=== PATIENT | male | born 1995 | race Caucasian/White ===

== ENCOUNTER 2019-05-16 23:21 | Inpatient (IN) ==
[2019-05-16] MEDS ORDERED: SODIUM CHLORIDE 0.9% 1000ML 1,000 ML IV ONE (23:29)
[2019-05-16] MEDS ORDERED: CALCIUM CHLORIDE 10% 1,000 MG in SODIUM CHLORIDE 0.9% 50 ML IV STA (23:43)
[2019-05-16] MEDS ORDERED: NovoLIN-R INSULIN PER UNIT CHARGE IV STA (23:43)
[2019-05-16] MEDS ORDERED: ALBUTEROL 0.5% NEB SOLN 2.5 MG/0.5 ML VIAL NEB STA (23:43)
[2019-05-16] MEDS ORDERED: SODIUM BICARB 8.4% INJ 50 MEQ/50 ML SYR IV STA (23:43)
[2019-05-16] MEDS ORDERED: CALCIUM GLUCONATE 10% 10 ML VIAL IV ONE (23:47)
[2019-05-16] MEDS ORDERED: CALCIUM CHLORIDE 10% 10 ML SYR IV ONE (23:51)
[2019-05-17] MEDS ORDERED: ED DKA INSULIN DRIP ONE (00:07)
[2019-05-17 00:28] LABS: Hematocrit (blood only) 41.9 % (42-52); Hemoglobin 12.8 g/dL (14.0-18.0); Mean Corpuscular Hemoglobin 32.4 pg (25-34); Mean Corpuscular Hgb Conc 30.5 g/dL (32-36); Mean Corpuscular Volume 106.1 fL (80-100); Mean Platelet Volume 10.5 fL (7.4-10.4); Platelet Count 315 K/uL (130-400); RDW Coefficient of Variation 12.2 % (11.5-14.5); RDW Standard Deviation 47.2 fL (36.4-46.3); Red Blood Count 3.95 M/uL (4.7-6.1); White Blood Count 34.58 K/uL (4.8-10.8)
[2019-05-17 00:29] LABS: ANC (manual) 30.05 K/uL (1.4-6.5); Lymphocytes % (manual) 5.2 %; Metamyelocytes # (manual) 0.31 K/uL (0-0); Metamyelocytes % (manual) 0.9 %; Monocytes # (manual) 2.42 K/uL (0.11-0.59); Neutrophils # (manual) 30.05 K/uL (1.4-6.5); Neutrophils % (manual) 86.9 %; Pappenheimer Bodies 1+; Polychromasia 1+; Toxic Granulation 2+
[2019-05-17 00:29] LABS: Base Excess ABG -27.1 mEq/L (-9-1.8); HCO3 ABG 4 mmol/L (19-24); PCO2 ABG 17 mmHg (35-46); PO2 ABG 135 mm/Hg (80-95)
[2019-05-17 00:31] LABS: Allen Test Pos (Pos); pH ABG 6.95 (7.35-7.45)
[2019-05-17 00:33] LABS: Alanine Aminotransferase 28 U/L (12-78); Albumin Globulin Ratio 1.3 (0.9-2); Albumin Level 3.5 gm/dl (3.4-5.0); Alkaline Phosphatase 113 U/L (45-117); Aspartate Aminotransferase 17 U/L (15-37); BUN Creatinine Ratio 16.6 (10-20); Bilirubin,Total 0.5 mg/dl (0.2-1); Blood Urea Nitrogen 45 mg/dl (7-18); Calcium 7.6 mg/dl (8.5-10.1); Carbon Dioxide < 5 mmol/L (21-32); Chloride 84 mmol/L (98-107); Est GFR (African American) 36.8; Est GFR (Non-African American) 31.8; Globulin 2.6 gm/dl (2.5-4.0); Glucose 1071 mg/dl (70-99); Lipase 142 U/L (73-393); Magnesium 3.1 mg/dl (1.8-2.4); Potassium 7.7 mmol/L (3.5-5.1); Sodium 117 mmol/L (136-145); Total Protein 6.1 gm/dl (6.4-8.2)
[2019-05-17] MEDS ORDERED: LACTATED RINGER'S 1,000 ML IV SCH (00:45)
[2019-05-17 00:49] LABS: Appearance Urine Clear (Clear); Bilirubin Urine Negative (Negative); Blood Urine 3+ (Negative); Color Urine Colorless; Glucose Urine UA 3+ (Negative); Leukocyte Esterase Urine Negative (Negative); Nitrite Urine Negative (Negative); Protein Urine Negative (Negative); Urobilinogen Urine Negative (Negative)
[2019-05-17 00:51] LABS: Ketones Urine 3+ (Negative)
[2019-05-17] MEDS: INSULIN REGULAR 250 UNITS in SODIUM CHLORIDE 0.9% 247.5 ML IV SCH (01:06)
[2019-05-17 01:21] LABS: Beta-Hydroxybutyrate 120.11 mg/dl (0.2-2.81); Phosphorus 8.3 mg/dl (2.5-4.9)
[2019-05-17 01:22] LABS: Epithelial Cell Urine 0-5 /lpf (0-5)
[2019-05-17 01:23] LABS: Bacteria Urine 1+ (Negative)
[2019-05-17 01:24] LABS: Hyaline Casts Urine 0-5 /lpf (0-5); RBC Urine 0-4 /hpf (0-4)
[2019-05-17] MEDS: SODIUM BICARBONATE 8.4% 150 MEQ in WATER, STERILE 1,000 ML IV SCH ×2 (01:47→05:31)
[2019-05-17 02:13] LABS: iSTAT Blood Urea Nitrogen 42 mg/dl (7-18); iSTAT Carbon Dioxide < 5 mEq/l (24-31); iSTAT Chloride 93 mEq/L (101-112); iSTAT Creatinine 2.2 mg/dl (0.6-1.3); iSTAT Glucose > 700 mg/dl (70-99); iSTAT Hematocrit 41 % (42-52); iSTAT Hemoglobin 13.9 g/dl (14.0-18.0); iSTAT Ionized Calcium 1.01 mmol/l (1.12-1.32); iSTAT Potassium 7.8 mEq/L (3.3-5.0); iSTAT Sodium 115 mEq/L (135-144)
[2019-05-17 02:20] LABS: iSTAT Blood Urea Nitrogen 41 mg/dl (7-18); iSTAT Carbon Dioxide 7 mEq/l (24-31); iSTAT Chloride 99 mEq/L (101-112); iSTAT Creatinine 2.1 mg/dl (0.6-1.3); iSTAT Glucose > 700 mg/dl (70-99); iSTAT Hematocrit 42 % (42-52); iSTAT Hemoglobin 14.3 g/dl (14.0-18.0); iSTAT Ionized Calcium 1.22 mmol/l (1.12-1.32); iSTAT Potassium 6.1 mEq/L (3.3-5.0); iSTAT Sodium 123 mEq/L (135-144)
[2019-05-17] MEDS ORDERED: DC ALL PREVIOUSLY ORDERED DIABETES MEDS ONE (02:33)
[2019-05-17] MEDS ORDERED: INSULIN REGULAR 250 UNITS in SODIUM CHLORIDE 0.9% 247.5 ML IV SCH (02:33)
[2019-05-17] MEDS ORDERED: DKA GOAL RANGE 150-250 mg/dl ONE (02:33)
[2019-05-17] MEDS ORDERED: ICU PROTOCOL FOR HYPERGLYCEMIA PRN (02:33)
--- NOTE | 2019-05-17 02:44 | History and Physical Report ---
DATE OF ADMISSION: 05/17/2019 CHIEF COMPLAINT: Diabetic ketoacidosis. HISTORY OF PRESENT ILLNESS: This is a 23-year-old male with past medical history significant for type 1 diabetes since last 12 years, on insulin pump since last 8 years. About a week ago, his insulin pump sensor was changed. He is from [facility] [employer] for [employer]. Yesterday, he was having lot of nausea and vomiting. He thought it was food poisoning and the he got dehydrated, was not feeling well, feeling sick and he checked his blood sugars and were running high on monitor, so he came here and found to be in DKA. His blood sugars on the blood work is 1071. Potassium of 7.7, bicarbonate was less than 5, creatinine was 2.7. White count was 35,000. A pH was 6.95 and on the monitor, he was having peaked T waves. He was aggressively treated for his hyperkalemia with sodium bicarbonate, calcium chloride, albuterol and insulin. The patient denies any abdominal pain. Denies any fever, chills, no cough, no headaches. He has some blurred visions, no earache, no runny nose, no sore throat, no chest pain, no shortness of breath. He is having frequent urination. Denies any burning micturition, no hematuria, no black stools, no melena or hematochezia. No rash. He never had DKA in the past. ALLERGIES: No known drug allergies. PAST MEDICAL HISTORY: As mentioned above. PAST SURGICAL HISTORY: None. MEDICATIONS: Insulin pump. FAMILY HISTORY: Grandparents had diabetes. Maternal grandfather has heart disorder. SOCIAL HISTORY: Denies any smoking. Alcohol rarely. No illicit drug use. REVIEW OF SYMPTOMS: As per HPI. Rest of review of systems negative. PHYSICAL EXAMINATION: GENERAL: The patient is alert and awake, not in acute distress currently. VITAL SIGNS: Temperature 36.6, pulse 120s, respiratory rate 20s, blood pressure 125/81, oxygen 99% room air. HEENT: No pallor, no icterus. Oral mucosa dry. NECK: No JVD, no neck masses, no carotid bruits. CARDIOVASCULAR: S1, S2 heard. Tachycardia. No murmurs. RESPIRATORY SYSTEM: Normal AP diameter, mild tachypnea. No wheezing, no crackles. ABDOMEN: Soft, bowel sounds present, nontender. No distention. CENTRAL NERVOUS SYSTEM: Alert, awake, oriented. Obeys simple commands. Moves extremities. EXTREMITIES: No edema, no erythema. LABORATORY DATA: WBC 34, hemoglobin 12.8, hematocrit 41.9, platelets 315. ABG: pH of 6.9, pCO2 of 17, pO2 135, bicarb 4, oxygen 98%. Sodium 117, potassium 7.7, chloride 84, bicarbonate less than 5, anion gap 31, BUN 45, creatinine 2.7, serum glucose 1071, calcium 7.6, phosphorus 8.3, magnesium 3.1, total bilirubin 0.5, AST 17, ALT 28, alkaline phosphatase 113. Troponin I 0.05. Lipase 142. Beta hydroxybutyric acid 120. TSH 1.3. Urinalysis positive for ketones and blood. EKG, undetermined rhythm with rate of 109. ASSESSMENT AND PLAN: This is a 23-year-old male who presents with diabetic ketoacidosis. 1. Diabetic ketoacidosis. The patient is type 1 diabetic since last 12 years, on insulin pump for last 8 years. The patient says he was never admitted for DKA in the past. He says he got new insulin pump monitor about a week and possibly mal functioning. Had nausea, vomiting yesterday .. Denies abdominal pain.Sugars were running high, so he came here and sugar was in 1000s, started on insulin drip. We will continue his IV insulin drip protocol per DKA protocol, aggressive IV fluids and maintenance fluids as per DKA protocol. To keep on insulin drip until anion gap closes. Keep him n.p.o. and monitor closely in the ICU. 2. Hyperkalemia secondary to above: Received calcium chloride, sodium bicarbonate, insulin and albuterol in the ER . We will follow the labs every 4 hours. 3. Anion gap metabolic acidosis secondary to above: Bicarbonate is low at 4. In the ER, bicarbonate drip was started. Further bicarbonate drip as per critical care. 4. Acute kidney injury: Creatinine of 2.7. secondary to above. We will follow repeat labs. 5. Pseudohyponatremia: Sodium of 117, corrected sodium is 136. Getting fluids. Follow the repeat labs. 6. Elevation of troponin, mostly secondary to diabetic ketoacidosis. We will follow serial cardiac enzymes. The patient is asymptomatic. 7. Leukocytosis. WBC 35. No signs of infection. Mostly leukemoid reaction. Will follow repeat labs. if any concerns will start on antibiotics. 8. Deep venous thrombosis prophylaxis, SCDs. DISPOSITION: Closely monitor in the ICU. Level 1 full code. MTDD
[2019-05-17] MEDS ORDERED: PHARMACY GLYCEMIC MGMT CONSULT PRN (03:19)
[2019-05-17 03:24] LABS: BUN Creatinine Ratio 16.7 (10-20); Beta-Hydroxybutyrate 116.18 mg/dl (0.2-2.81); Calcium 8.1 mg/dl (8.5-10.1); Creatinine Clr Calc Pharmacy 47.6 ml/min; Est GFR (African American) 40.6; Est GFR (Non-African American) 35.1
[2019-05-17 03:28] LABS: Phosphorus 5.4 mg/dl (2.5-4.9); Potassium 5.9 mmol/L (3.5-5.1)
[2019-05-17] MEDS ORDERED: GLUCOSE 40% GEL 15 GM TUBE PO PRN (03:30)
[2019-05-17] MEDS ORDERED: DEXTROSE 50% 50 ML SYRINGE IV PRN (03:30)
[2019-05-17] MEDS ORDERED: CARBOHYDRATES FOR HYPOGLYCEMIA PO PRN (03:30)
[2019-05-17] MEDS ORDERED: GLUCAGON FOR INJ 1 MG VIAL SQ PRN (03:30)
[2019-05-17] MEDS ORDERED: GLUCOSE 10 TABS/TUBE PO PRN (03:30)
[2019-05-17] MEDS ORDERED: ONDANSETRON INJ 2 MG/ML 2 ML VIAL IV STA (03:35)
[2019-05-17] MEDS ORDERED: ONDANSETRON INJ 2 MG/ML 2 ML VIAL ONE (03:37)
[2019-05-17] MEDS ORDERED: METOCLOPRAMIDE HCL INJ 5 MG/ML 2 ML VIAL IV ONE ×2 (03:42→05:12)
[2019-05-17] MEDS: SODIUM CHLORIDE 0.9% 1000ML 1,000 ML IV SCH ×3 (03:52→05:32)
[2019-05-17] MEDS ORDERED: ONDANSETRON INJ 2 MG/ML 2 ML VIAL IV PRN (04:07)
[2019-05-17] MEDS ORDERED: SODIUM CHLORIDE 0.9% 1000ML 500 ML IV ONE (04:14)
--- NOTE | 2019-05-17 04:45 | Critical Care Consultation ---
Date of Consultation May 17, 2019 Assessment & Plan (1) Admitted to intensive care unit: Reason Critically Ill: 23-year-old male with severe DKA and electrolyte derangements requiring aggressive IV fluid resuscitation and close hemodynamic monitoring. NEURO - * CAM ICU: NEGATIVE * Monitor neuro status frequently for changes in mental status in the setting of correction of underlying DKA. * Currently awake, alert, and oriented. No focal neurological deficits appreciated. CARDIAC/VASCULAR - * Elevated troponin: * Presumed demand mediated in the setting of prolonged tachycardia, severity of illness, hypovolemia, and metabolic acidosis. EKG w/o concerning ST changes for ischemia/infarction. * Trend troponin. * Peaked T waves on EKG: * Initially w/ tachycardia and significantly peaked T-waves with apparent prolonging of the QRS complex on presentation. Peaked T-waves completely resolved w/ aggressive medical treatment. * Serial EKGs. * Treat K as below. * EKG: * Presenting: Sinus tachycardia @ 109 bpm w/ profound peaked T-waves and widening of QRS complex. QTc 519 ms. * Post Treatment: Sinus tachycardia @ 1247 bpm w/ improvement of both dynamic T-waves and shortening of QRS complex. QTc 418 ms. * Monitor on telemetry. RESPIRATORY - * Tachypnea: * Compensatory Kussmaul respirations in the setting of DKA w/ profound metabolic acidosis. * Has shown improvement w/ aggressive IVF resuscitation. * Monitor pulse oximetry continuously. * Serial ABGs. * Would attempt to avoid intubation if at all possible 2/2 risks related to severe metabolic acidosis, electrolyte derangement, etc. GI/NUTRITION - * NPO in the setting of DKA w/ high anion gap. * Intractable Nausea and Vomiting: * Likely 2/2 underlying illness. * Initially improved w/ IV Zofran alone. * Will add scheduled Zofran (QTc has greatly improved since presentation.) * Patient w/ persistent Hiccups. * Likely from diaphragmatic irritation from persistent nausea and vomiting. * Will add IV Reglan. * Initial vomit on presentation to ICU was brownish in appearance. Gastric Occult: NEGATIVE * Will add Famotidine for possible underlying gastritis. * Prophylaxis: Famotidine RENAL/LYTES - * High Anion gap metabolic acidosis: * 2/2 Profound DKA. * Received aggressive IVF boluses in the ED. * Continue w/ Isotonic IVF resuscitation. * Initial ABG w/ pH of 6.9. Agree w/ continuing BiCarb gtt at this point until we are closer to 7.2 range. * Will add dextrose containing IVF when we are within goal range per unit protocol. * Hyperkalemia: * With significant EKG findings initially. * Recovered well w/ treatment. * Should see continued improvement w/ DKA treatment (i.e. BiCarb gtt, insulin gtt, isotonic IVF). * Hyponatremia: * In the setting of DKA w/ Serum Glucose of 1071. * Corrected Sodium: 133-140 mEq/L * JIMENEZ: * In the setting of profound dehydration from N/V. * Presumed to be prerenal in etiology. * Currently making urine. * Anticipate improvement w/ treatment of DKA. - * Strict I&Os. ENDO - * Profound DKA in the IDDM: * Secondary to pump malfunction. * DKA Tx per unit protocol. * Continue w/ Insulin gtt. * Isotonic saline --> Dextrose containing IVF per policy. * Currently requiring BiCarb gtt w/ a pH of 6.9. Will plan to continue until he is closer to 7.2. * Anticipate improvement of pH/serum BiCarb w/ treatment alone as he is making great urine and showing improvement of both anion gap and other electrolyte derangments. HEME - * Leukocytosis: * Likely in the setting of stress reaction/demargination. * Stable H&H. Will monitor closely w/ aggressive IVF resuscitation. ID - * Elevated leukocytosis likely stress reaction in the setting of significant N/V. * Without fever or prodrome of other infectious etiology. * Will check serum lactate. LINES/IV ACCESS - * PIVs x1 * LEFT Forearm 22g Endurance catheter. * RIGHT Radial A-Line. * Patient verbally consents to CVL if needed. DVT PROPHYLAXIS - * SCDs I have personally spent 85 minutes of critical care time in the direct management of this patient. This is a life/limb threatening event. This includes time spent evaluating patient, direct bedside care, chart review, placing orders, interpretation of diagnostic studies, discussion with consultants, patient, and family members, as well as other required patient management activities. This time is exclusive of all separately billable procedures, and teaching time and separate from and in addition to any other critical care service time. Thank you for allowing us to participate in the care of this patient. Please refer to my attending physician's documentation for any further recommendations. (2) DKA (diabetic ketoacidoses): (3) Hyperkalemia: (4) Dehydration: (5) Acute renal failure: (6) Vomiting: (7) High anion gap metabolic acidosis: Supervising Physician Co-Signing Physician Notes Patient seen and examined. Discussed with critical care PA. Discussed with mother and patient at bedside. Briefly the patient is a 23-year-old type I diabetic currently on an insulin pump. He just got a new insulin sensor which apparently was malfunctioning. He did not have his typical glucometer. He is visiting from [place]. According to his mom he is not had prior admissions for DKA but did have one admission for hypoglycemia. He appears to have been fairly well controlled. He was experiencing several days of nausea and vomiting widened QRS and to be in severe DKA with a pH of less than 7.0 and elevated potassium. He received bicarb and calcium as well as fluids and insulin and is admitted to the ICU. He has improved overnight but continues to demonstrate electrolyte abnormalities and acid-base to range. Recommendations: 1. Severe DKA: Discontinue bicarb drip. Continue insulin. Add glucose when sugars drop and will try and keep insulin drip at or above 2 units an hour. Keep on noncaloric clears for now 2. Acute kidney injury: Suspect prerenal state. I think the patient likely still has some persistent hypovolemia. He remains mildly tachycardic. And additional 2 L of crystalloid will be administered and followed up. 3. Leukocytosis: Suspect this is reactive. We will continue to follow. No obvious signs of infection and no indication for antimicrobials currently. 4. Multiple lecture light abnormalities including hyponatremia, hyperkalemia, hypocalcemia: Aggressive replacement will be warranted I suspect the patient will require potassium phosphate and calcium replacement as his acid-base status improves. Magnesium may also need to be repleted. 5. Nausea and vomiting: Secondary to acid-base disturbances. No history of gastroparesis. Continue Zofran and low-dose Ativan as needed 6. We will continue to observe the patient in the ICU today. Plan was discussed with ICU bedside nurse as well as patient and parents at bedside. Additional 25 minutes critical care time evaluating managing patient History of Present Illness Attending Physician: Jeanette Pool MD History of Present Illness Patient is a 23-year-old male with a significant past medical history of insulin-dependent diabetes since the age of 12 who has been using an insulin pump for the past 8 years. He reports that he noticed that he had change pumps approximately 1 week ago. In doing so, he has a new sensor. He reports that yesterday his sensor seem to be not working appropriately. Last evening, the patient reported feeling nauseous and fatigued. He began vomiting throughout the entire day. He has had copious amounts of vomiting. He has not been able to tolerate food or fluids. No blood noted in his vomit or stool. No diarrhea. He reports some diffuse abdominal pain which only developed after vomiting. He admits to labored breathing as well as increasing urination and thirst. He has never experienced DKA in the past. He has never been hospitalized for his diabetes. Upon presentation to the emergency department, the patient had been receiving his second liter normal saline prehospital. He was noted to have tachycardia with wide QRS complex and significantly peaked T waves. He was initially treated with 1 amp of sodium bicarbonate, calcium chloride, and albuterol nebulizer. He received a total of 4 L crystalloid between prehospital and in the emergency department. He was started on a bicarbonate drip secondary to severe metabolic acidosis with a pH of 6.9. Upon evaluation in the emergency department, the patient is awake, alert, and oriented. He reports feeling better than initial presentation, but complains of hiccups. He denies nausea at this time. He reports mild epigastric discomfort which he states has been persistent since the vomiting. He denies any recent long distance travel. No recent antibiotic use. No consumption of raw/undercooked foods. No drinking from poor water sources. He does report drinking alcohol last evening, but no more than usual. He denies any illicit drug use. Patient reports feeling dizzy and generally weak. He denies any headaches, double vision, slurred speech, facial droop, unilateral weakness/numbness, fevers, chills, recent illness, chest pain, palpitations, pleuritic pain, hematochezia, melena, hematuria, or dysuria. Allergies Allergy/AdvReac Type Severity Reaction Status Date / Time No Known Allergies Allergy Unverified 05/17/19 00:31 Home Medications Home Medications Medication Instructions Recorded Confirmed Type insulin lispro [Humalog U-100 1 sliding scale dose CONTINUOUS 05/17/19 05/17/19 History Insulin] SUBCUTANEOUS INFUSION USEASDIRECTD Patient History Medical History Diabetes Family History Other Diabetes Social History Preferred Language: Tamaz[place] Communication Ability: Effective Household Personal Assistant Required: No Beliefs That Will Affect Care: None Current Living Situation: Alone Other Information That Helps Us Care for You: No Feels Safe at Home: Yes Safety Concerns: Feels Safe At This Time Smoking Status: Never smoker Do You Dip or Chew Tobacco: No ; Second Hand Exposure: No ; Tobacco Cessation Education Requested by Patient: No Hx Alcohol Use: Yes Hx Substance Use: No Review of Systems Review of Systems: A complete 10 point review of systems was reviewed with the patient with pertinent positives and negatives as per history of present illness. All else were negative. Physical Exam Physical Exam: VITAL SIGNS - Vital signs and nursing notes were reviewed. GENERAL - 23-year-old male appearing his stated age who is in mild distress. Communicates well with provider and answers questions appropriately. Ill appearing. SKIN - Without rashes. HEAD - NC/AT. EYES - PERRL with EOMI bilaterally. Sclera anicteric. Palpebral conjunctiva pink and moist with no injection noted. EARS - No deformities of external structures noted on gross examination bilaterally. NOSE - Midline and without cyanosis. No epistaxis or purulent drainage noted. MOUTH/OROPHARYNX - Without perioral cyanosis. Buccal mucosa pink and dry. NECK - Neck with FROM. Supple to palpation. No lymphadenopathy noted. No nuchal rigidity. LUNGS - Chest wall symmetric without accessory muscle use, intercostals retractions, or central cyanosis. Normal vesicular breath sounds CTA B/L. No wheezes, rales, or rhonchi appreciated. CARDIAC - RRR with S1/S2. No murmur, rubs, or gallops appreciated. ABDOMEN - Abdominal contour flat without pulsations or visible masses. BS normoactive all four quadrants. No tenderness, palpable masses, hepatosplenomegaly, or ascites noted. EXTREMITIES - No clubbing or peripheral cyanosis. No pretibial edema present. +3/5 radial and dorsalis pedis pulses palpated throughout. +5/5 strength noted in UE/LE bilaterally. NEUROLOGIC - Cranial nerves II through XII grossly intact. Sensory intact to light touch throughout. PSYCH - A&Ox3 and cooperates fully with examiner. Pt is very pleasant and interacts well with examiner. Results & Data Vital Signs (Past 12 Hours) Vital Signs Temp Pulse Pulse Resp BP BP Pulse Ox 05/17/19 02:45 36.9 C 125 H 24 115/45 L 99 05/17/19 02:30 129 H 32 H 108/53 L 97 05/17/19 02:15 126 H 31 H 115/54 L 98 05/17/19 02:00 124 H 23 115/71 98 05/17/19 01:58 121 H 22 122/64 98 05/17/19 01:53 36.6 C 05/17/19 01:00 127 H 27 H 125/81 99 05/17/19 00:45 129 H 30 H 121/71 100 05/17/19 00:30 127 H 22 136/55 L 100 05/17/19 00:15 105 H 21 130/53 L 99 05/17/19 00:00 114 H 20 112/72 100 05/16/19 23:45 108 H 24 109/65 100 05/16/19 23:43 109 H 24 108/54 L 100 05/16/19 23:34 105 H 23 104/57 L 98 05/16/19 23:30 34.8 C L 107 H 22 108/54 L 99 05/16/19 23:28 110 H 22 100 Coding Level of Care Code None Diagnoses Admitted to intensive care unit Z78.9 DKA (diabetic ketoacidoses) E10.10 Diabetes mellitus complication detail: without coma Diabetes mellitus type: type 1 Hyperkalemia E87.5 Dehydration E86.0 Acute renal failure N17.9 Acute renal failure type: unspecified Vomiting R11.2 Nausea presence: with nausea Vomiting Intractability: intractable Vomiting type: unspecified High anion gap metabolic acidosis E87.2 Time Spent (min) 105 Comment minutes of critical care time in the direct management of this patient. This is a life/limb threatening event. This includes time spent evaluating patient, direct bedside care, chart review, placing orders, interpretation of diagnostic studies, discussion with consultants, patient, and family members, as well as other required patient management activities. This time is exclusive of all separately billable procedures, and teaching time and separate from and in addition to any other critical care service time. (1) DKA (diabetic ketoacidoses) Diabetes mellitus complication detail: without coma Diabetes mellitus type: type 1 Qualified Code(s): E10.10 - Type 1 diabetes mellitus with ketoacidosis without coma (2) Acute renal failure Acute renal failure type: unspecified Qualified Code(s): N17.9 - Acute kidney failure, unspecified (3) Vomiting Nausea presence: with nausea Vomiting Intractability: intractable Vomiting type: unspecified Qualified Code(s): R11.2 - Nausea with vomiting, unspecified
--- NOTE | 2019-05-17 04:46 | Procedure Note ---
Procedure Note Date of Service May 17, 2019 Procedure: Penitentiary Indwelling Peripherally Inserted IV Catheter Placement Attending: Dr. Del Valle APC: Scar Marion PA-C Indication: Need for IV Access, Poor Vascular Access Anesthesia: None Verbal consent was obtained from patient prior to performing the procedure. A time-out was completed verifying correct patient, procedure, site, positioning, and implant(s) or special equipment if applicable. Utilizing bedside ultrasound, vascularity of the LEFT upper extremity was assessed. Vessel size was noted for appropriate catheter selection and skin was marked with gentle pressure. Patients LEFT upper extremity was prepped and draped in the usual sterile fashion utilizing chlorhexidine. Ultrasound guidance was used to aid needle placement. A 22 g Endurance Catheter was introduced into the LEFT Forearm vein under direct ultrasound guidance. Guide wire was easily deployed without resistance. Catheter was threaded over the guide wire without resistance and the entire apparatus was removed intact. Good venous blood return was noted in the catheter. The IV catheter was easily flushed with sterile saline flush. Sterile clave was attached to the end of the catheter and good blood return was again noted. Tourniquet was released. StatLock device and sterile dressing were applied. The patient tolerated the procedure well. Blood Loss: Minimal Complications: None Procedural Ultrasound Guidance: Procedure Date: 05/17/2019 Indication: Poor Vascular Access Attending: Dr. Del Valle APC: Scar Marion PA-C Artery/Veins Identified: YES Access confirmed in Vein with ultrasound: YES Complications: NONE Patient tolerated procedure: WELL Coding
--- NOTE | 2019-05-17 04:48 | Procedure Note ---
Procedure Note Date of Service May 17, 2019 Procedure: Arterial Line Placement Attending: Dr. Del Valle APC: Scar Marion PA-C Indication: Monitoring on Pressors Anesthesia: Lidocaine 1% Emergent consent implied given need for close hemodynamic monitoring as well as frequent ABGs and blood glucose monitoring in the patient with poor vascular access. Indication, risks, and benefits were explained at length. Patient verbally consents. A time-out was completed verifying correct patient, procedure, site, positioning, and implant(s) or special equipment if applicable. Allens test was performed to ensure adequate perfusion. Patients RIGHT wrist was prepped and draped in the usual sterile fashion. Ultrasound guidance was used to aid needle placement. A 20g Arrow arterial line was introduced into the RIGHT Radial artery. Catheter was threaded, and the needle was removed with appropriate blood return. Good waveform was observed. The patient tolerated the procedure well. Confirmation of placement with ultrasound. Blood Loss: Minimal Complications: None Procedural Ultrasound Guidance: Procedure Date: 05/17/2019 Indication: Frequent lab draws, ABGs, BSGs, and hemodynamic monitoring. Attending: Dr. Del Valle APC: Scar Marion PA-C Artery Identified: YES Line confirmed in Artery with ultrasound: YES Complications: NONE Patient tolerated procedure: WELL Coding CPT Codes Tubes, Drains, and Vasc Access - Tubes, Drains, and Vasc Access: Place Catheter In Artery ([id number])
[2019-05-17 04:53] LABS: Hemoglobin 13.4 g/dL (14.0-18.0); Mean Corpuscular Hemoglobin 32.6 pg (25-34); Mean Corpuscular Hgb Conc 34.4 g/dL (32-36); Mean Corpuscular Volume 94.9 fL (80-100); Platelet Count 255 K/uL (130-400); RDW Coefficient of Variation 11.8 % (11.5-14.5); RDW Standard Deviation 40.6 fL (36.4-46.3); Red Blood Count 4.11 M/uL (4.7-6.1); White Blood Count 35.95 K/uL (4.8-10.8)
[2019-05-17 05:02] LABS: BUN Creatinine Ratio 17.6 (10-20); Calcium 7.9 mg/dl (8.5-10.1); Creatinine Clr Calc Pharmacy 50.9 ml/min; Magnesium 2.8 mg/dl (1.8-2.4); Phosphorus 2.8 mg/dl (2.5-4.9); Potassium 5.6 mmol/L (3.5-5.1); Troponin I 0.133 ng/ml (0-0.045)
[2019-05-17 05:03] LABS: Gastric Occult Blood Negative (Negative)
[2019-05-17] MEDS ORDERED: SODIUM CHLORIDE 0.9% 1000ML 250 ML IV ONE (05:22)
[2019-05-17 05:47] LABS: Base Excess ABG -20.9 mEq/L (-9-1.8); HCO3 ABG 5 mmol/L (19-24); Oxygen Saturation ABG 96.1 % (90-95); PCO2 ABG 15 mmHg (35-46); PO2 ABG 89 mm/Hg (80-95)
[2019-05-17 05:50] LABS: pH ABG 7.16 (7.35-7.45)
[2019-05-17 05:55] LABS: Beta-Hydroxybutyrate 124.81 mg/dl (0.2-2.81)
[2019-05-17 05:56] LABS: ALC (manual) 4.49 K/uL (1.2-3.4); ANC (manual) 27.93 K/uL (1.4-6.5); Lymphocytes # (manual) 4.49 K/uL (1.2-3.4); Lymphocytes % (manual) 12.5 %; Metamyelocytes # (manual) 0.65 K/uL (0-0); Metamyelocytes % (manual) 1.8 %; Monocytes # (manual) 2.88 K/uL (0.11-0.59); Neutrophils # (manual) 27.93 K/uL (1.4-6.5); Neutrophils % (manual) 77.7 %; Pappenheimer Bodies 1+; Polychromasia 1+; Toxic Vacuolation 1+
[2019-05-17 06:47] LABS: Beta-Hydroxybutyrate 110.13 mg/dl (0.2-2.81)
[2019-05-17] MEDS: FAMOTIDINE 20 MG in SYRINGE 3 ML IV SCH ×2 (07:00→18:17)
[2019-05-17] MEDS: PENDING D5 1/2NS+20mEq KCL IVF SCH ×4 (07:21→10:46)
[2019-05-17] MEDS: INSULIN ASPART 100 UNITS/ML 3 ML PEN SC SCH ×4 (07:21→20:29)
[2019-05-17] MEDS: PENDING 1/2NSS+20mEq KCL IVF SCH ×5 (07:21→10:47)
--- NOTE | 2019-05-17 07:32 | XRay Report ---
CHEST AND ABDOMEN 2 VIEWS HISTORY: Nausea. Vomiting. COMPARISON: None. FINDINGS: The lungs are clear. The cardiomediastinal silhouette is within normal limits. There is no pneumoperitoneum or pneumatosis. The bowel gas pattern is unremarkable. No evidence for b owel obstruction. No pathologic calcifications. IMPRESSION: No acute cardiopulmonary process. No evidence for bowel obstruction. Electronically signed by: Mitesh Harper M.D. 05/17/2019 7:31 AM
[2019-05-17] MEDS ORDERED: ICU ELECTROLYTE REPLACEMENT PROTOCOL PRN (07:59)
[2019-05-17] MEDS ORDERED: NURSING ICU ELECTROLYTE ORDER ONE (07:59)
[2019-05-17] MEDS ORDERED: LACTATED RINGER'S 2,000 ML IV ONE (07:59)
[2019-05-17] MEDS ORDERED: LORazepam 0.25 MG/0.5 ML VIAL IV PRN (08:01)
[2019-05-17] MEDS ORDERED: SODIUM PHOSPHATE 3 MMOL/1 ML INFUSION IV STA (08:19)
[2019-05-17] MEDS ORDERED: CALCIUM GLUCONATE 10% 1,000 MG in SODIUM CHLORIDE 0.9% 50 ML IV ONE (09:00)
[2019-05-17] MEDS ORDERED: SODIUM PHOSPHATE 15 MMOL in SODIUM CHLORIDE 0.9% 250 ML IV ONE (09:00)
[2019-05-17 10:03] LABS: Amphetamines+Metham, Urine Neg (Neg); Barbiturates, Urine Neg (Neg); Benzodiazepine, Urine Neg (Neg); Cocaine, Urine Neg (Neg); MDMA (Ecstacy), Urine Neg (Neg); Methadone, Urine Neg (Neg); Opiate, Urine Neg (Neg); Phencyclidine, Urine Neg (Neg)
[2019-05-17] MEDS ORDERED: D5W AND 1/2NSS 1,000 ML IV SCH (10:15)
[2019-05-17 11:14] LABS: BUN Creatinine Ratio 16.3 (10-20); Calcium 7.5 mg/dl (8.5-10.1); Creatinine Clr Calc Pharmacy 71.9 ml/min; Est GFR (African American) 66.8; Est GFR (Non-African American) 57.7; Magnesium 1.9 mg/dl (1.8-2.4); Phosphorus 1.9 mg/dl (2.5-4.9); Potassium 4.2 mmol/L (3.5-5.1); Troponin I 0.499 ng/ml (0-0.045)
--- NOTE | 2019-05-17 11:30 | Hospitalist Progress Note ---
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 Clinically better this morning We will continue current management Leukocytosis Secondary to a stress due to DKA Doubt any infection Has been improving Increasing troponin Likely due to stress and demand ischemia Doubt any ACS Troponins have been improving Present on Admission?: Yes (2) High anion gap metabolic acidosis: Presented with high anion gap metabolic acidosis Initial pH 6.951 presentation with bicarb of 4 Has been receiving intravenous fluid including intravenous bicarb Acidosis has been improving (3) Hyperkalemia: Presented with severe electrolyte abnormality Potassium was 7.7 with EKG changes on admission Has been normalized as of this morning Hypophosphatemia Has been getting replacement We will monitor (4) Acute renal failure: Secondary to severe dehydration Has been getting intravenous fluid Kidney function seems to be improving with creatinine of 1.65 on 05/17 DVT prophylaxis Subcu heparin Subjective 05/17 The patient was seen and examined in ICU Is a 23-year-old male with insulin-dependent diabetes was admitted with DKA and severe electrolyte imbalance Remains drowsy as of this morning without any acute distress Denies any significant symptoms Review of Systems Review of Systems: All systems reviewed and are unremarkable except as noted below Constitutional: + fatigue, + weakness and + anorexia Neurologic: + generalized weakness Physical Exam Physical Exam: Lying in bed without any significant discomfort but remains drowsy Constitutional: well developed, well nourished and + ill appearing; no acute distress Eyes: PERRL, conjunctivae normal, anicteric sclerae ENMT: external ear and nose normal, oropharynx normal Neck: trachea midline, no thyromegaly Respiratory: normal respiratory effort; no respiratory distress Auscultation: lungs clear to auscultation bilaterally Cardiovascular: Rate/Rhythm: regular rate and regular rhythm Heart Sounds: no murmur Gastrointestinal (Abdomen): Inspection/Auscultation: abdomen normal to inspection and normal bowel sounds Percussion/Palpation: abdomen soft Musculoskeletal: No acute arthritis in any joints Neurologic: moves all extremities; no focal motor deficits Generally very weak and lethargic Lymphatic: no cervical or axillary lymphadenopathy Results & Data Vital Signs (Past 12 Hours) Vital Signs Temp Pulse Pulse Resp BP BP BP 10/20/19 06:00 120 H 24 101/49 L 119/59 L 05/17/19 05:00 117 H 31 H 109/46 L 05/17/19 04:00 36.6 C 120 H 25 H 97/48 L 05/17/19 03:00 36.7 C 125 H 30 H 104/49 L 05/17/19 02:45 36.9 C 125 H 24 115/45 L 05/17/19 02:30 129 H 32 H 108/53 L 05/17/19 02:15 126 H 31 H 115/54 L 05/17/19 02:00 124 H 23 115/71 05/17/19 01:58 121 H 22 122/64 05/17/19 01:53 36.6 C 05/17/19 01:00 127 H 27 H 125/81 05/17/19 00:45 129 H 30 H 121/71 05/17/19 00:30 127 H 22 136/55 L 05/17/19 00:15 105 H 21 130/53 L 05/17/19 00:00 114 H 20 112/72 05/16/19 23:45 108 H 24 109/65 05/16/19 23:43 109 H 24 108/54 L 05/16/19 23:34 105 H 23 104/57 L 05/16/19 23:30 34.8 C L 107 H 22 108/54 L 05/16/19 23:28 110 H 22 Pulse Ox 05/17/19 06:00 99 05/17/19 05:00 99 05/17/19 04:00 99 05/17/19 03:00 98 05/17/19 02:45 99 05/17/19 02:30 97 05/17/19 02:15 98 05/17/19 02:00 98 05/17/19 01:58 98 05/17/19 01:53 05/17/19 01:00 99 05/17/19 00:45 100 05/17/19 00:30 100 05/17/19 00:15 99 05/17/19 00:00 100 05/16/19 23:45 100 05/16/19 23:43 100 05/16/19 23:34 98 05/16/19 23:30 99 10/19/19 23:28 100 Laboratory Results Short CBC 10/19/19 10/20/19 Range/Units 23:35 04:12 WBC 34.58 H* 35.95 H* (4.8-10.8) K/uL Hgb 12.8 L 13.4 L (14.0-18.0) g/dL Hct 41.9 L 39.0 L (42-52) % Plt Count 315 255 (130-400) K/uL BMP 05/16/19 05/17/19 05/17/19 23:54 02:05 04:12 Sodium 117 L* 124 L D 125 L Potassium 7.7 H* 5.9 H D 5.6 H Chloride 84 L 92 L 96 L Carbon Dioxide < 5 L* 6 L* 5 L* BUN 45 H 41 H 41 H Creatinine 2.70 H 2.49 H 2.33 H Glucose 1071 H* 830 H* 642 H* Calcium 7.6 L 8.1 L 7.9 L 05/17/19 05/17/19 05:30 10:26 Sodium 132 L D Potassium 4.2 D Chloride 108 H Carbon Dioxide 13 L BUN 27 H Creatinine 1.65 H D Glucose 533 H* 223 H Calcium 7.5 L Cardiac Enzymes 05/16/19 05/17/19 05/17/19 Range/Units 23:54 04:12 10:26 Troponin I 0.050 H* 0.133 H* 0.499 H* (0-0.045) ng/ml Liver Function 05/16/19 Range/Units 23:54 Total Bilirubin 0.5 (0.2-1) mg/dl AST 17 (15-37) U/L ALT 28 (12-78) U/L Alkaline Phosphatase 113 (45-117) U/L Albumin 3.5 (3.4-5.0) gm/dl Urine 05/17/19 Range/Units 00:05 Urine Color Colorless Urine Appearance Clear (Clear) Urine pH 5.0 (4.5-7.5) Ur Specific [place] 1.020 (1.000-1.030) Urine Protein Negative (Negative) Urine Glucose (UA) 3+ H (Negative) Medications Administered Current Inpatient Medications Dextrose (Dextrose 50%) 25 - 50 ml IV UD PRN; Protocol PRN Reason: Hypoglycemia Protocol Stop: 06/16/19 03:29 Glucagon (Glucagen) 1 mg SQ UD PRN; Protocol PRN Reason: Hypoglycemia Protocol Stop: 06/16/19 03:29 Glucose (Glucose 40%) 15 - 30 gm PO UD PRN; Protocol PRN Reason: Hypoglycemia Protocol Stop: 06/16/19 03:29 Glucose (Dex4 Glucose) 4 - 8 tabs PO UD PRN; Protocol PRN Reason: Hypoglycemia Protocol Stop: 06/16/19 03:29 Insulin Human Regular 250 (units/ Sodium Chloride) 250 mls @ 6.6 mls/hr IV .Q24H [facility]; Protocol Stop: 06/16/19 00:14 Last Titration: 05/17/19 10:00 Dose: 5.3 units/hr, 5.3 mls/hr Documented by: Famotidine 20 mg/ Syringe 5 mls @ 2.5 mls/min IV Q12H [facility] Stop: 06/16/19 05:59 Last Admin: 05/17/19 07:00 Dose: 2.5 mls/min Documented by: Lorazepam (Ativan) 0.25 mg in 0.5 mls @ 0.5 mls/min IV Q6 PRN PRN Reason: Nausea And Vomiting Stop: 06/16/19 08:00 Sodium Phosphate 15 mmol/ (Sodium Chloride) 255 mls @ 100 mls/hr IV 0900 ONE Stop: 05/17/19 11:32 Last Admin: 05/17/19 09:10 Dose: 100 mls/hr Documented by: Potassium Chloride/Dextrose/Sod Cl (D5w And 1/2nss + 20meq Kcl) 20 meq in 1,000 mls @ 150 mls/hr IV .Q6H40M [facility] Stop: 06/16/19 11:29 Insulin Aspart (Novolog Flexpen) 0 units SC ACHS [facility] Stop: 06/16/19 07:29 Last Admin: 05/17/19 07:21 Dose: Not Given Documented by: Miscellaneous (Icu Protocol For Hyperglycemia) 1 ea N/A PRN PRN; Protocol PRN Reason: Hyperglycemia Protocol Stop: 05/19/19 02:32 Miscellaneous (Pending 1/2nss+20meq Kcl Ivf) 1 ea N/A Q2H [facility] Stop: 06/16/19 02:32 Last Admin: 05/17/19 10:47 Dose: Not Given Documented by: Miscellaneous (Pending D5 1/2ns+20meq Kcl Ivf) 1 ea N/A Q2H [facility] Stop: 06/16/19 02:32 Last Admin: 05/17/19 10:46 Dose: Not Given Documented by: Miscellaneous (Carbohydrates For Hypoglycemia) 15 - 30 gm PO UD PRN PRN Reason: Hypoglycemia Treatment Stop: 06/16/19 03:29 Miscellaneous ([facility] Electrolyte Replacement Protocol) 1 ea N/A UD PRN PRN Reason: for e-lyte repletion Stop: 05/24/19 07:58 Miscellaneous Information (Consult Glycemic Management Pharmacy) 1 ea N/A UD PRN PRN Reason: Consult Stop: 06/16/19 03:18 Ondansetron HCl (Zofran) 4 mg IV Q6H PRN PRN Reason: Nausea Stop: 06/16/19 04:06 Last Admin: 05/17/19 05:21 Dose: 4 mg Documented by: (1) DKA (diabetic ketoacidoses) Diabetes mellitus complication detail: without coma Diabetes mellitus type: type 1 Qualified Code(s): E10.10 - Type 1 diabetes mellitus with ketoacidosis without coma (2) Acute renal failure Acute renal failure type: unspecified Qualified Code(s): N17.9 - Acute kidney failure, unspecified
[2019-05-17] MEDS: D5W AND 1/2NSS + 20MEQ KCL 20 MEQ/1,000 ML BAG IV SCH ×2 (12:02→18:17)
[2019-05-17] MEDS ORDERED: SODIUM PHOSPHATE 3 MMOL/1 ML 5 ML VIAL IV ONE (13:01)
[2019-05-17] MEDS: POTASSIUM CHLORIDE / WTR 10 MEQ/100 ML PLCT IV SCH ×4 (13:29→21:49)
[2019-05-17] MEDS ORDERED: CALCIUM GLUCONATE 10% 2,000 MG in SODIUM CHLORIDE 0.9% 50 ML IV ONE ×2 (13:30→19:30)
[2019-05-17] MEDS ORDERED: MAGNESIUM SULFATE / D5W 1 GM/100 ML BAG IV ONE (13:30)
[2019-05-17] MEDS ORDERED: SODIUM PHOSPHATE 30 MMOL in SODIUM CHLORIDE 0.9% 500 ML IV ONE (13:30)
[2019-05-17 18:53] LABS: BUN Creatinine Ratio 10.5 (10-20); Calcium 7.5 mg/dl (8.5-10.1); Creatinine Clr Calc Pharmacy 77.5 ml/min; Est GFR (African American) 73.2; Est GFR (Non-African American) 63.2; Potassium 3.7 mmol/L (3.5-5.1)
[2019-05-17 18:54] LABS: Phosphorus 3.2 mg/dl (2.5-4.9)
[2019-05-17] MEDS ORDERED: POTASSIUM PHOS 3 MMOL/1 ML INFUSION IV STA (19:05)
[2019-05-17] MEDS ORDERED: POTASSIUM PHOSPHATE 9 MMOL in SODIUM CHLORIDE 0.9% 250 ML IV ONE (19:30)
[2019-05-17] MEDS: HEPARIN SOD 5,000 UNIT/0.5 ML VIAL SQ SCH (20:28)
[2019-05-17 22:47] LABS: BUN Creatinine Ratio 9.1 (10-20); Calcium 8.1 mg/dl (8.5-10.1); Creatinine Clr Calc Pharmacy 84.7 ml/min; Est GFR (African American) 81.5; Est GFR (Non-African American) 70.3; Potassium 4.2 mmol/L (3.5-5.1)
[2019-05-17 22:52] LABS: Phosphorus 2.3 mg/dl (2.5-4.9)
[2019-05-18] MEDS: D5W AND 1/2NSS + 20MEQ KCL 20 MEQ/1,000 ML BAG IV SCH ×3 (00:04→06:00)
[2019-05-18] MEDS ORDERED: LACTATED RINGER'S 500 ML IV ONE (00:32)
[2019-05-18] MEDS: INSULIN REGULAR 250 UNITS in SODIUM CHLORIDE 0.9% 247.5 ML IV SCH (01:19)
--- NOTE | 2019-05-18 03:26 | Emergency Department Note ---
Entered by Flores Ang acting as a scribe for History of Present Illness General Chief complaint: Illness Stated complaint: ILLNESS/VOMITING Time Seen by Provider: 05/16/19 23:24 Source: patient Mode of arrival: EMS Limitations: no limitations History of Present Illness Provider complaint: Hyperglycemia Onset (ago): day(s) 1 Location: abdomen Pain Consistency: + constant Quality: + constant Associated symptoms: + nausea/vomiting and + other (Positive: abdominal pain) The patient is a 23 year old male with past medical history of diabetes who presents to the ED with complaints of constant hyperglycemia that stared yesterday. The patient reports he got a new sensor last week that stopped working yesterday along with the pump. He states he has had history of diabetes since he was 11 years old and has had the same pump for 8 years. The patient additionally reports he has nausea, vomiting, and abdominal pain. He denies any recent change in his diet or activity. No sick contacts. Patient denies ever needing to be hospitalized for his diabetes. Denies any history of DKA. EMS reported their glucometer read high on their check prehospital, patient was started on IV fluids. Patient has had 1 L and is into a second liter on arrival here. Patient was given Zofran prehospital also. Home Medications Home Medications Medication Instructions Recorded Confirmed Type insulin lispro [Humalog U-100 1 sliding scale dose CONTINUOUS 05/17/19 05/17/19 History Insulin] SUBCUTANEOUS INFUSION USEASDIRECTD Allergies Allergy/AdvReac Type Severity Reaction Status Date / Time No Known Allergies Allergy Unverified 05/17/19 00:31 Past Med/Surg History Medical History Diabetes Family History Other Diabetes Social History Preferred Language: Kazakh Communication Ability: Effective Field Map Technician Required: No Beliefs That Will Affect Care: None Current Living Situation: Alone Other Information That Helps Us Care for You: No Feels Safe at Home: Yes Safety Concerns: Feels Safe At This Time Smoking Status: Never smoker Do You Dip or Chew Tobacco: No ; Second Hand Exposure: No ; Tobacco Cessation Education Requested by Patient: No Hx Alcohol Use: Yes Hx Substance Use: No Review of Systems See HPI for pertinent positives & negatives. and A total of 10 systems reviewed and were otherwise negative Physical Exam Vital Signs Vital Signs - 24 hr 05/16/19 23:28 05/16/19 23:30 05/16/19 23:34 Temperature 94.6 F L Temperature Source Rectal Sepsis Recent Fever Within 48 Hours No Sepsis New/Unexplained Change in Mental Status No Sepsis Action Taken by Nursing No Action Required Pulse Rate 110 H 107 H 105 H Pulse Rate from SpO2 Sensor 109 H 110 H 107 H Respiratory Rate 22 22 23 Respiratory Effort / Characteristics Non-Labored Respiratory Depth Normal Blood Pressure 108/54 L 104/57 L Blood Pressure Mean 72 72 Pulse Oximetry 100 99 98 Oxygen Delivery Method Room Air Room Air 05/16/19 23:43 05/16/19 23:45 05/17/19 00:00 Temperature Temperature Source Sepsis Recent Fever Within 48 Hours Sepsis New/Unexplained Change in Mental Status Sepsis Action Taken by Nursing Pulse Rate 109 H 108 H 114 H Pulse Rate from SpO2 Sensor 110 H 108 H 111 H Respiratory Rate 24 24 20 Respiratory Effort / Characteristics Respiratory Depth Blood Pressure 108/54 L 109/65 112/72 Blood Pressure Mean 72 79 85 Pulse Oximetry 100 100 100 Oxygen Delivery Method Room Air Room Air Room Air 05/17/19 00:15 05/17/19 00:30 05/17/19 00:45 Temperature Temperature Source Sepsis Recent Fever Within 48 Hours Sepsis New/Unexplained Change in Mental Status Sepsis Action Taken by Nursing Pulse Rate 105 H 127 H 129 H Pulse Rate from SpO2 Sensor 103 H 126 H 129 H Respiratory Rate 21 22 30 H Respiratory Effort / Characteristics Respiratory Depth Blood Pressure 130/53 L 136/55 L 121/71 Blood Pressure Mean 78 82 87 Pulse Oximetry 99 100 100 Oxygen Delivery Method Room Air Room Air Room Air 05/17/19 01:00 05/17/19 01:53 Temperature 97.9 F Temperature Source Oral Sepsis Recent Fever Within 48 Hours Sepsis New/Unexplained Change in Mental Status Sepsis Action Taken by Nursing Pulse Rate 127 H Pulse Rate from SpO2 Sensor 128 H Respiratory Rate 27 H Respiratory Effort / Characteristics Respiratory Depth Blood Pressure 125/81 Blood Pressure Mean 95 Pulse Oximetry 99 Oxygen Delivery Method Room Air GENERAL: alert, mildly ill appearing, well nourished, no distress, non-toxic EYE EXAM: normal conjunctiva, PERRL and EOM's grossly intact OROPHARYNX: no exudate, no erythema, lips, buccal mucosa, and tongue normal. Dry mucous membranes. NECK: supple, no nuchal rigidity, no adenopathy, non-tender LUNGS: Clear to auscultation. Normal chest wall mechanics. No wheezes, rhonchi, or rales. HEART: no murmurs, S1 normal and S2 normal. Tachycardic at 115. ABDOMEN: abdomen soft, non-tender, normo-active bowel sounds, no masses, no rebound or guarding. BACK: Back is symmetrical on inspection and there is no deformity, no midline tenderness, no CVA tenderness. SKIN: no rashes and no bruising, no petechiae UPPER EXTREMITIES: upper extremities are grossly normal. FROM, nml pulses b/l. LOWER EXTREMITIES: No pitting edema. FROM, nml pulses b/l. NEURO EXAM: Normal sensorium, cranial nerves II-XII grossly intact, normal speech, no gross weakness of arms, no gross weakness of legs. Course 2321: The patient was evaluated in room A1. A complete history and physical exam was performed. 2342: I checked on the patient. 0012: Upon reevaluation, the patient is resting comfortably. I discussed laboratory and radiographic results with him. The patient verbalized agreement of the treatment plan. The patient will be evaluated for further management and care. ICU PA was contacted. Peak T waves are already improving. Patient's tachycardia is improving. No other ectopy noted. Patient remains hemodynamically stable. 0122: I discussed the patient's case with Dr. [place], [facility] [place] He will evaluate the patient for further management. 0154: I checked on the patient. He is getting a second line and both drips are now running. The patient is going to the ICU. Administered Medications Heparin Sodium (Porcine) (Heparin Sodium (Porcine)) 5,000 units SQ Q12 JUSTINO Stop: 06/16/19 20:59 Last Admin: 05/17/19 20:28 Dose: 5,000 units Documented by: [id number] Cosigned by: [id number] Insulin Human Regular 250 (units/ Sodium Chloride) 250 mls @ 2.6 mls/hr IV .Q24H JUSTINO; Protocol Stop: 06/16/19 00:14 Last Titration: 05/18/19 04:00 Dose: 2.6 units/hr, 2.6 mls/hr Documented by: [id number] Cosigned by: [id number] Titration: 05/18/19 02:00 Dose: 2.6 units/hr, 2.6 mls/hr Documented by: [id number] Cosigned by: [id number] Admin: 05/18/19 01:19 Dose: 2.6 units/hr, 2.6 mls/hr Documented by: [id number] Cosigned by: [id number] Titration: 05/18/19 01:19 Dose: 2.6 units/hr, 2.6 mls/hr Documented by: [id number] Cosigned by: [id number] Titration: 05/18/19 00:05 Dose: 2.6 units/hr, 2.6 mls/hr Documented by: [id number] Cosigned by: [id number] Titration: 05/17/19 23:00 Dose: 2.6 units/hr, 2.6 mls/hr Documented by: [id number] Cosigned by: [id number] Titration: 05/17/19 22:00 Dose: 2.6 units/hr, 2.6 mls/hr Documented by: [id number] Cosigned by: [id number] Titration: 05/17/19 21:00 Dose: 2.6 units/hr, 2.6 mls/hr Documented by: [id number] Cosigned by: [id number] Titration: 05/17/19 20:00 Dose: 2.6 units/hr, 2.6 mls/hr Documented by: [id number] Cosigned by: [id number] Titration: 05/17/19 19:00 Dose: 2.6 units/hr, 2.6 mls/hr Documented by: [id number] Cosigned by: [id number] Titration: 05/17/19 18:45 Dose: 2.6 units/hr, 2.6 mls/hr Documented by: [id number] Cosigned by: [id number] Titration: 05/17/19 17:45 Dose: 3.2 units/hr, 3.2 mls/hr Documented by: [id number] Cosigned by: [id number] Titration: 05/17/19 17:00 Dose: 0 units/hr, 0 mls/hr Documented by: [id number] Cosigned by: [id number] Titration: 05/17/19 15:00 Dose: 5.3 units/hr, 5.3 mls/hr Documented by: [id number] Cosigned by: [id number] Titration: 05/17/19 13:00 Dose: 5.3 units/hr, 5.3 mls/hr Documented by: [id number] Cosigned by: [id number] Titration: 05/17/19 12:00 Dose: 5.3 units/hr, 5.3 mls/hr Documented by: [id number] Cosigned by: [id number] Titration: 05/17/19 11:00 Dose: 5.3 units/hr, 5.3 mls/hr Documented by: [id number] Cosigned by: [id number] Titration: 05/17/19 10:00 Dose: 5.3 units/hr, 5.3 mls/hr Documented by: [id number] Cosigned by: [id number] Titration: 05/17/19 09:00 Dose: 6.6 units/hr, 6.6 mls/hr Documented by: [id number] Cosigned by: [id number] Titration: 05/17/19 08:00 Dose: 6.6 units/hr, 6.6 mls/hr Documented by: [id number] Cosigned by: [id number] Titration: 05/17/19 07:08 Dose: 6.6 units/hr, 6.6 mls/hr Documented by: [id number] Cosigned by: [id number] Titration: 05/17/19 06:00 Dose: 6.6 units/hr, 6.6 mls/hr Documented by: [id number] Cosigned by: [id number] Titration: 05/17/19 05:04 Dose: 5.5 units/hr, 5.5 mls/hr Documented by: [id number] Cosigned by: [id number] Titration: 05/17/19 03:00 Dose: 4.6 units/hr, 4.6 mls/hr Documented by: [id number] Cosigned by: [id number] Admin: 05/17/19 01:06 Dose: 3.8 units/hr, 3.8 mls/hr Documented by: [id number] Cosigned by: [id number] Famotidine 20 mg/ Syringe 5 mls @ 2.5 mls/min IV Q12H JUSTINO Stop: 06/16/19 05:59 Last Admin: 05/17/19 18:17 Dose: 2.5 mls/min Documented by: [id number] Admin: 05/17/19 07:00 Dose: 2.5 mls/min Documented by: [id number] Potassium Chloride/Dextrose/Sod Cl (D5w And 1/2nss + 20meq Kcl) 20 meq in 1,000 mls @ 200 mls/hr IV .Q5H JUSTINO Stop: 06/16/19 11:29 Last Admin: 05/18/19 04:12 Dose: 200 mls/hr Documented by: [id number] Infusion: 05/18/19 04:12 Dose: 200 mls/hr Documented by: [id number] Admin: 05/18/19 00:04 Dose: 200 mls/hr Documented by: [id number] Infusion: 05/17/19 23:17 Dose: 200 mls/hr Documented by: [id number] Admin: 05/17/19 18:17 Dose: 200 mls/hr Documented by: [id number] Infusion: 05/17/19 18:17 Dose: 200 mls/hr Documented by: [id number] Infusion: 05/17/19 17:39 Dose: 200 mls/hr Documented by: [id number] Admin: 05/17/19 12:02 Dose: 150 mls/hr Documented by: [id number] Insulin Aspart (Novolog Flexpen) 0 units SC ACHS JUSTINO Stop: 06/16/19 07:29 Last Admin: 05/17/19 20:29 Dose: 300 units Documented by: [id number] Cosigned by: [id number] Admin: 05/17/19 15:53 Dose: Not Given Documented by: [id number] Cosigned by: [id number] Admin: 05/17/19 12:14 Dose: Not Given Documented by: [id number] Cosigned by: [id number] Admin: 05/17/19 07:21 Dose: Not Given Documented by: [id number] Cosigned by: [id number] Ondansetron HCl (Zofran) 4 mg IV Q6H PRN PRN Reason: Nausea Stop: 06/16/19 04:06 Last Admin: 05/17/19 05:21 Dose: 4 mg Documented by: [id number] Discontinued Medications Albuterol (Ventolin 0.5% 2.5mg/0.5ml) 2.5 mg NEB NOW STA Stop: 05/16/19 23:44 Last Admin: 05/16/19 23:50 Dose: 2.5 mg Documented by: [id number] Calcium Chloride (Calcium Chloride 10%) Confirm Administered Dose 1,000 mg IV .STK-MED ONE Stop: 05/16/19 23:52 Last Admin: 05/17/19 00:11 Dose: Not Given Documented by: [id number] Calcium Gluconate (Calcium Gluconate 10%) Confirm Administered Dose 1,000 mg IV .STK-MED ONE Stop: 05/16/19 23:48 Last Admin: 05/16/19 23:53 Dose: Not Given Documented by: [id number] Sodium Chloride (Nss 1000ml) 1,000 mls @ 999 mls/hr IV .Q1H1M ONE Stop: 05/17/19 00:29 Last Infusion: 05/17/19 01:12 Dose: 0 mls/hr Documented by: [id number] Admin: 05/16/19 23:52 Dose: 999 mls/hr Documented by: [id number] Calcium Chloride 1,000 mg/ (Sodium Chloride) 60 mls @ 240 mls/hr IV NOW STA Stop: 05/16/19 23:57 Last Infusion: 05/17/19 00:10 Dose: 0 mls/hr Documented by: [id number] Admin: 05/16/19 23:53 Dose: 240 mls/hr Documented by: [id number] Sodium Bicarbonate 150 meq/ (Sterile Water) 1,150 mls @ 150 mls/hr IV .Q7H40M JUSTINO Stop: 06/16/19 00:44 Last Infusion: 05/17/19 08:20 Dose: 0 mls/hr Documented by: [id number] Admin: 05/17/19 05:31 Dose: 150 mls/hr Documented by: [id number] Infusion: 05/17/19 05:31 Dose: 100 mls/hr Documented by: [id number] Admin: 05/17/19 01:47 Dose: 100 mls/hr Documented by: [id number] Lactated Ringer's (Lr) 1,000 mls @ 125 mls/hr IV .Q8H JUSTINO Stop: 06/16/19 00:44 Last Infusion: 05/17/19 07:22 Dose: 0 mls/hr Documented by: [id number] Admin: 05/17/19 01:47 Dose: 125 mls/hr Documented by: [id number] Sodium Chloride (Nss 1000ml) 1,000 mls @ 150 mls/hr IV .Q6H40M JUSTINO Stop: 06/16/19 02:32 Last Infusion: 05/17/19 10:05 Dose: 0 mls/hr Documented by: [id number] Infusion: 05/17/19 05:32 Dose: 150 mls/hr Documented by: [id number] Admin: 05/17/19 05:32 Dose: 250 mls/hr Documented by: [id number] Infusion: 05/17/19 05:32 Dose: 250 mls/hr Documented by: [id number] Admin: 05/17/19 05:23 Dose: 250 mls/hr Documented by: [id number] Infusion: 05/17/19 05:23 Dose: 250 mls/hr Documented by: [id number] Admin: 05/17/19 03:52 Dose: 250 mls/hr Documented by: [id number] Sodium Chloride (Nss 1000ml) 500 mls @ 999 mls/hr IV .Q31M ONE Stop: 05/17/19 04:44 Last Infusion: 05/17/19 07:22 Dose: 0 mls/hr Documented by: [id number] Admin: 05/17/19 05:21 Dose: 999 mls/hr Documented by: [id number] Sodium Chloride (Nss 1000ml) 250 mls @ 999 mls/hr IV .Q16M ONE Stop: 05/17/19 05:37 Last Infusion: 05/17/19 07:22 Dose: 0 mls/hr Documented by: [id number] Admin: 05/17/19 05:29 Dose: 999 mls/hr Documented by: [id number] Lactated Ringer's (Lr) 2,000 mls @ 999 mls/hr IV .Q2H1M ONE Stop: 05/17/19 09:59 Last Infusion: 05/17/19 10:48 Dose: 0 mls/hr Documented by: [id number] Admin: 05/17/19 08:23 Dose: 999 mls/hr Documented by: [id number] Calcium Gluconate 1,000 mg/ (Sodium Chloride) 60 mls @ 240 mls/hr IV 0900 ONE Stop: 05/17/19 09:14 Last Infusion: 05/17/19 09:33 Dose: 0 mls/hr Documented by: [id number] Admin: 05/17/19 09:10 Dose: 240 mls/hr Documented by: [id number] Sodium Phosphate 15 mmol/ (Sodium Chloride) 255 mls @ 100 mls/hr IV 0900 ONE Stop: 05/17/19 11:32 Last Infusion: 05/17/19 11:43 Dose: 0 mls/hr Documented by: [id number] Admin: 05/17/19 09:10 Dose: 100 mls/hr Documented by: [id number] Dextrose/Sodium Chloride (D5w And 1/2nss) 1,000 mls @ 150 mls/hr IV .Q6H40M [facility] Stop: 06/16/19 10:14 Last Infusion: 05/17/19 12:02 Dose: 0 mls/hr Documented by: [id number] Admin: 05/17/19 10:05 Dose: 150 mls/hr Documented by: [id number] Calcium Gluconate 2,000 mg/ (Sodium Chloride) 70 mls @ 240 mls/hr IV NOW ONE Stop: 05/17/19 13:47 Last Infusion: 05/17/19 13:50 Dose: 0 mls/hr Documented by: [id number] Admin: 05/17/19 13:28 Dose: 240 mls/hr Documented by: [id number] Magnesium Sulfate/Dextrose (Magnesium Sulfate / D5w) 1 gm in 100 mls @ 100 mls/hr IV ONE ONE Stop: 05/17/19 14:29 Last Infusion: 05/17/19 15:06 Dose: 0 mls/hr Documented by: [id number] Admin: 05/17/19 13:50 Dose: 100 mls/hr Documented by: [id number] Potassium Chloride (K Estrada / Wtr) 10 meq in 100 mls @ 100 mls/hr IV Q1H [facility] Stop: 05/17/19 15:44 Last Infusion: 05/17/19 15:48 Dose: 0 mls/hr Documented by: [id number] Admin: 05/17/19 14:30 Dose: 100 mls/hr Documented by: [id number] Infusion: 05/17/19 14:29 Dose: 100 mls/hr Documented by: [id number] Admin: 05/17/19 13:29 Dose: 100 mls/hr Documented by: [id number] Sodium Phosphate 30 mmol/ (Sodium Chloride) 510 mls @ 88 mls/hr IV ONE ONE Stop: 05/17/19 19:17 Last Infusion: 05/17/19 19:16 Dose: 88 mls/hr Documented by: [id number] Admin: 05/17/19 13:28 Dose: 88 mls/hr Documented by: [id number] Calcium Gluconate 2,000 mg/ (Sodium Chloride) 70 mls @ 240 mls/hr IV 1930 ONE Stop: 05/17/19 19:47 Last Infusion: 05/17/19 20:44 Dose: 240 mls/hr Documented by: [id number] Admin: 05/17/19 20:26 Dose: 240 mls/hr Documented by: [id number] Potassium Chloride (K Estrada / Wtr) 10 meq in 100 mls @ 100 mls/hr IV Q1H JUSTINO Stop: 05/17/19 21:29 Last Infusion: 05/17/19 22:49 Dose: 100 mls/hr Documented by: [id number] Admin: 05/17/19 21:49 Dose: 100 mls/hr Documented by: [id number] Infusion: 05/17/19 21:28 Dose: 100 mls/hr Documented by: [id number] Admin: 05/17/19 20:28 Dose: 100 mls/hr Documented by: [id number] Potassium Phosphate 9 mmol/ (Sodium Chloride) 253 mls @ 100 mls/hr IV ONE ONE Stop: 05/17/19 22:01 Last Infusion: 05/17/19 22:59 Dose: 100 mls/hr Documented by: [id number] Admin: 05/17/19 20:27 Dose: 100 mls/hr Documented by: [id number] Lactated Ringer's (Lr) 500 mls @ 999 mls/hr IV .Q31M ONE Stop: 05/18/19 01:02 Last Infusion: 05/18/19 01:14 Dose: 999 mls/hr Documented by: [id number] Admin: 05/18/19 00:43 Dose: 999 mls/hr Documented by: [id number] Insulin Human Regular (Novolin R U-100 Per Unit) 10 units IV NOW STA Stop: 05/16/19 23:44 Last Admin: 05/17/19 00:07 Dose: 10 units Documented by: [id number] Cosigned by: [id number] Metoclopramide HCl (Reglan) 5 mg IV ONE ONE Stop: 05/17/19 03:43 Last Admin: 05/17/19 03:52 Dose: 5 mg Documented by: [id number] Metoclopramide HCl (Reglan) 5 mg IV ONE ONE Stop: 05/17/19 05:13 Last Admin: 05/17/19 05:21 Dose: 5 mg Documented by: [id number] Miscellaneous (Pending 1/2nss+20meq Kcl Ivf) 1 ea N/A Q2H JUSTINO Stop: 06/16/19 02:32 Last Admin: 05/17/19 10:47 Dose: Not Given Documented by: [id number] Admin: 05/17/19 09:10 Dose: Not Given Documented by: [id number] Admin: 05/17/19 07:24 Dose: Not Given Documented by: [id number] Admin: 05/17/19 07:23 Dose: Not Given Documented by: [id number] Admin: 05/17/19 07:21 Dose: Not Given Documented by: [id number] Miscellaneous (Pending D5 1/2ns+20meq Kcl Ivf) 1 ea N/A Q2H JUSTINO Stop: 06/16/19 02:32 Last Admin: 05/17/19 10:46 Dose: Not Given Documented by: [id number] Admin: 05/17/19 09:10 Dose: Not Given Documented by: [id number] Admin: 05/17/19 07:24 Dose: Not Given Documented by: [id number] Admin: 05/17/19 07:24 Dose: Not Given Documented by: [id number] Admin: 05/17/19 07:21 Dose: Not Given Documented by: [id number] Miscellaneous (Nursing Icu Electrolyte Order) 1 ea N/A ONE ONE Stop: 05/17/19 08:00 Last Admin: 05/17/19 09:10 Dose: Not Given Documented by: [id number] Ondansetron HCl (Zofran) 4 mg IV NOW STA Stop: 05/17/19 03:36 Last Admin: 05/17/19 03:52 Dose: 4 mg Documented by: [id number] Ondansetron HCl (Zofran) Confirm Administered Dose 4 mg .ROUTE .STK-MED ONE Stop: 05/17/19 03:38 Last Admin: 05/17/19 05:22 Dose: 4 mg Documented by: [id number] Sodium Bicarbonate (Sodium Bicarbonate 8.4%) 1 meq IV ONCE STA Stop: 05/16/19 23:44 Last Admin: 05/16/19 23:53 Dose: 1 meq Documented by: [id number] Medical Decision Making Differential Diagnosis Differential diagnosis: Etiologies such as gastroenteritis, food borne illness, infections, appendicitis, diverticulitis, inflammatory bowel disease, obstruction, GI bleed, biliary pathology, as well as others were entertained. Medical Records Attestation: I reviewed the patient's medical records. Home Medications Current Medication List: was personally reviewed by me Laboratory Data Attestation: I reviewed the patient's lab results. Result diagrams: 05/17/19 04:12 05/17/19 22:23 Lab Results 05/16/19 05/16/19 05/16/19 Range/Units 23:35 23:41 23:54 WBC 34.58 H* (4.8-10.8) K/uL RBC 3.95 L (4.7-6.1) M/uL Hgb 12.8 L (14.0-18.0) g/dL POC Hgb 13.9 L (14.0-18.0) g/dl Hct 41.9 L (42-52) % POC Hct 41 L (42-52) % MCV 106.1 H (80-100) fL MCH 32.4 (25-34) pg MCHC 30.5 L (32-36) g/dL RDW Std Deviation 47.2 H (36.4-46.3) fL RDW Coeff of All 12.2 (11.5-14.5) % Plt Count 315 (130-400) K/uL MPV 10.5 H (7.4-10.4) fL Neutrophils % (Manual) 86.9 % Lymphocytes % (Manual) 5.2 % Monocytes % (Manual) 7.0 % Metamyelocytes % (Man) 0.9 % Neutrophils # (Manual) 30.05 H (1.4-6.5) K/uL Total Absolute Neuts 30.05 H (1.4-6.5) K/uL Lymphocytes # (Manual) 1.80 (1.2-3.4) K/uL Total Abs Lymphocytes 1.80 (1.2-3.4) K/uL Monocytes # (Manual) 2.42 H (0.11-0.59) K/uL Metamyelocytes # (Man) 0.31 H (0-0) K/uL Toxic Granulation 2+ Polychromasia 1+ Pappenheimer Bodies 1+ ABG pH 6.95 L* (7.35-7.45) ABG pCO2 17 L (35-46) mmHg ABG pO2 135 H (80-95) mm/Hg ABG HCO3 4 L (19-24) mmol/L ABG O2 Saturation 98.0 H (90-95) % ABG Base Excess -27.1 L (-9-1.8) mEq/L Clayton Test Pos (Pos) Barometric Pressure 731.4 mm/Hg Oxygen Given ROOM AIR POC Sodium 115 L* (135-144) mEq/L Sodium (136-145) mmol/L POC Potassium 7.8 H* (3.3-5.0) mEq/L Potassium (3.5-5.1) mmol/L POC Chloride 93 L (101-112) mEq/L Chloride (98-107) mmol/L Carbon Dioxide (21-32) mmol/L POC Total CO2 < 5 L* (24-31) mEq/l Anion Gap (3-11) POC Anion Gap 25.0 (16-25) mmol/L POC BUN 42 H (7-18) mg/dl BUN (7-18) mg/dl Creatinine (0.6-1.4) mg/dl POC Creatinine 2.2 H (0.6-1.3) mg/dl Est Cr Clr Drug Dosing Est GFR ( Amer) Est GFR (Non-Af Amer) BUN/Creatinine Ratio (10-20) Glucose (70-99) mg/dl POC Glucose (70-99) POC Glucose (other) > 700 H* (70-99) mg/dl Calcium (8.5-10.1) mg/dl POC Ioniz Calcium Charlene 1.01 L (1.12-1.32) mmol/l Phosphorus (2.5-4.9) mg/dl Magnesium (1.8-2.4) mg/dl Total Bilirubin (0.2-1) mg/dl AST (15-37) U/L ALT (12-78) U/L Alkaline Phosphatase (45-117) U/L Troponin I (0-0.045) ng/ml Total Protein (6.4-8.2) gm/dl Albumin (3.4-5.0) gm/dl Globulin (2.5-4.0) gm/dl Albumin/Globulin Ratio (0.9-2) Lipase (73-393) U/L Beta-Hydroxybutyric Acd (0.2-2.81) mg/dl TSH (0.300-4.500) uIu/ml Urine Color Urine Appearance (Clear) Urine pH (4.5-7.5) Ur Specific [place] (1.000-1.030) Urine Protein (Negative) Urine Glucose (UA) (Negative) Urine Ketones (Negative) Urine Blood (Negative) Urine Nitrite (Negative) Urine Bilirubin (Negative) Urine Urobilinogen (Negative) Ur Leukocyte Esterase (Negative) Urine RBC (0-4) /hpf Urine WBC (0-5) /hpf Ur Epithelial Cells (0-5) /lpf Urine Bacteria (Negative) Hyaline Casts (0-5) /lpf Granular Casts (0) /lpf 05/16/19 05/17/19 05/17/19 Range/Units 23:54 00:05 01:11 WBC (4.8-10.8) K/uL RBC (4.7-6.1) M/uL Hgb (14.0-18.0) g/dL POC Hgb (14.0-18.0) g/dl Hct (42-52) % POC Hct (42-52) % MCV (80-100) fL MCH (25-34) pg MCHC (32-36) g/dL RDW Std Deviation (36.4-46.3) fL RDW Coeff of All (11.5-14.5) % Plt Count (130-400) K/uL MPV (7.4-10.4) fL Neutrophils % (Manual) % Lymphocytes % (Manual) % Monocytes % (Manual) % Metamyelocytes % (Man) % Neutrophils # (Manual) (1.4-6.5) K/uL Total Absolute Neuts (1.4-6.5) K/uL Lymphocytes # (Manual) (1.2-3.4) K/uL Total Abs Lymphocytes (1.2-3.4) K/uL Monocytes # (Manual) (0.11-0.59) K/uL Metamyelocytes # (Man) (0-0) K/uL Toxic Granulation Polychromasia Pappenheimer Bodies ABG pH (7.35-7.45) ABG pCO2 (35-46) mmHg ABG pO2 (80-95) mm/Hg ABG HCO3 (19-24) mmol/L ABG O2 Saturation (90-95) % ABG Base Excess (-9-1.8) mEq/L Clayton Test (Pos) Barometric Pressure mm/Hg Oxygen Given POC Sodium (135-144) mEq/L Sodium 117 L* (136-145) mmol/L POC Potassium (3.3-5.0) mEq/L Potassium 7.7 H* (3.5-5.1) mmol/L POC Chloride (101-112) mEq/L Chloride 84 L (98-107) mmol/L Carbon Dioxide < 5 L* (21-32) mmol/L POC Total CO2 (24-31) mEq/l Anion Gap 31.0 H (3-11) POC Anion Gap (16-25) mmol/L POC BUN (7-18) mg/dl BUN 45 H (7-18) mg/dl Creatinine 2.70 H (0.6-1.4) mg/dl POC Creatinine (0.6-1.3) mg/dl Est Cr Clr Drug Dosing Not Reportable Est GFR ( Amer) 36.8 Est GFR (Non-Af Amer) 31.8 BUN/Creatinine Ratio 16.6 (10-20) Glucose 1071 H* (70-99) mg/dl POC Glucose > 600 H* (70-99) POC Glucose (other) (70-99) mg/dl Calcium 7.6 L (8.5-10.1) mg/dl POC Ioniz Calcium Charlene (1.12-1.32) mmol/l Phosphorus 8.3 H (2.5-4.9) mg/dl Magnesium 3.1 H (1.8-2.4) mg/dl Total Bilirubin 0.5 (0.2-1) mg/dl AST 17 (15-37) U/L ALT 28 (12-78) U/L Alkaline Phosphatase 113 (45-117) U/L Troponin I 0.050 H* (0-0.045) ng/ml Total Protein 6.1 L (6.4-8.2) gm/dl Albumin 3.5 (3.4-5.0) gm/dl Globulin 2.6 (2.5-4.0) gm/dl Albumin/Globulin Ratio 1.3 (0.9-2) Lipase 142 (73-393) U/L Beta-Hydroxybutyric Acd 120.11 H (0.2-2.81) mg/dl TSH 1.310 (0.300-4.500) uIu/ml Urine Color Colorless Urine Appearance Clear (Clear) Urine pH 5.0 (4.5-7.5) Ur Specific [place] 1.020 (1.000-1.030) Urine Protein Negative (Negative) Urine Glucose (UA) 3+ H (Negative) Urine Ketones 3+ H (Negative) Urine Blood 3+ H (Negative) Urine Nitrite Negative (Negative) Urine Bilirubin Negative (Negative) Urine Urobilinogen Negative (Negative) Ur Leukocyte Esterase Negative (Negative) Urine RBC 0-4 (0-4) /hpf Urine WBC 10-30 H (0-5) /hpf Ur Epithelial Cells 0-5 (0-5) /lpf Urine Bacteria 1+ H (Negative) Hyaline Casts 0-5 (0-5) /lpf Granular Casts 1-5 H (0) /lpf Imaging Data Attestation: I personally reviewed and interpreted this imaging study as follows: My Impression: 1V Chest XR: No cardiomegaly No effusion No wide mediastinum No focal consolidation 2V abdomen XR: Scattered air and stool no definite SBO ECG Data Attestation: I personally reviewed and interpreted this ECG as follows: Indication: abdominal pain and vomiting Rate (beats per minute): 109 Rhythm: sinus rhythm Findings: + other (Right word axis, prolonged QRS and QTC, peaked T waves); no acute ischemic change Blood Pressure Blood Pressure Findings: Normal blood pressure Blood Pressure Disposition: did not require urgent referral MDM Narrative Patient presenting here only mildly ill-appearing, however undetectable elevated blood sugar readings on EMS glucometer, and EKG findings suggestive of possible hyperkalemia. Patient is already been started on IV fluids by EMS. No other ectopy noted on telemetry and patient otherwise hemodynamically stable despite being tachycardic. A [id number] Chem-8 was sent due to suspicion for electrolyte abnormality and possible DKA which showed numerous abnormalities initially. Patient already been given a nebulizer treatment by EMS. Orders are placed for calcium, bicarb, and additional nebulizer, and IV insulin here. An insulin drip was then ordered as well as a bicarb drip. Patient continued to receive IV fluids over these were changed over to lactated Ringer's. ABG showed patient to be severely acidemic. The ICU PA was contacted who came to bedside to evaluate the patient also and assisted in the placement of an additional peripheral IV. I discussed the case with the hospitalist as well. Patient remained hemodynamically stable and heart rate did improve with additional IV fluids. A repeat Chem-8 while patient was still the emergency room did show imp rovement of his potassium and sodium. Likely patient's hyponatremia is delusional secondary to the significant hyperglycemia. Despite the leukocytosis I do not suspect occult bacteremia/sepsis, more likely this stress reaction given the DKA. Cultures were sent as a precaution. Impression & Plan DKA (diabetic ketoacidoses), Dehydration, Hyperkalemia, Acute renal failure, Vomiting, Dilutional hyponatremia, Tachycardia Critical Care Time Critical Care Time: Yes I have personally spent 45 minutes of critical care time in the direct management of this patient. This includes bedside care, interpretation of diagnostic studies, and testing, discussion with consultants, patient, and family members, and other required patient management activities. This 45 minutes is in excess of all separately billable procedures. Discharge Plan Visit Data *Final* Discharge Date/Time: 05/17/19 02:34 Chief Complaint: Illness Stated Complaint: ILLNESS/VOMITING ED Provider: Celestina Mclain Discharge Problem: DKA (diabetic ketoacidoses), Dehydration, Hyperkalemia, Acute renal failure, Vomiting, Dilutional hyponatremia, Tachycardia Patient Disposition: Admitted As Inpatient Discharge Instructions Interventions: ED Discharge Assessment Last Done: 05/17/19 02:34 Discharge Problem: DKA (diabetic ketoacidoses) Qualifiers: Diabetes mellitus type: type 1 Diabetes mellitus complication detail: without coma Qualified Code(s): E10.10 - Type 1 diabetes mellitus with ketoacidosis without coma Acute renal failure Qualifiers: Acute renal failure type: unspecified Qualified Code(s): N17.9 - Acute kidney failure, unspecified Vomiting Qualifiers: Vomiting type: unspecified Vomiting Intractability: intractable Nausea presence: with nausea Qualified Code(s): R11.2 - Nausea with vomiting, unspecified The scribe's documentation has been prepared under my direction and personally reviewed by me in its entirety. I confirm that the note above accurately reflects all work, treatment, procedures, and medical decision making performed by me.
[2019-05-18 05:35] LABS: Calcium 7.4 mg/dl (8.5-10.1); Creatinine Clr Calc Pharmacy 89.9 ml/min; Est GFR (African American) 87.5; Est GFR (Non-African American) 75.5; Magnesium 1.8 mg/dl (1.8-2.4); Potassium 3.6 mmol/L (3.5-5.1)
[2019-05-18 05:49] LABS: Phosphorus 0.9 mg/dl (2.5-4.9)
[2019-05-18 05:51] LABS: Basophils # (auto) 0.01 K/uL (0-0.2); Basophils % (auto) 0.1 %; Eosinophils # (auto) 0.01 K/uL (0-0.5); Eosinophils % (auto) 0.1 %; Hematocrit (blood only) 33.5 % (42-52); Hemoglobin 12.1 g/dL (14.0-18.0); Immature Granulocytes # (auto) 0.04 K/uL (0.00-0.02); Immature Granulocytes % (auto) 0.3 %; Lymphocytes # (auto) 1.72 K/uL (1.2-3.4); Lymphocytes % (auto) 12.1 %; Mean Corpuscular Hemoglobin 32.3 pg (25-34); Mean Corpuscular Hgb Conc 36.1 g/dL (32-36); Mean Corpuscular Volume 89.3 fL (80-100); Mean Platelet Volume 9.6 fL (7.4-10.4); Monocytes # (auto) 1.25 K/uL (0.11-0.59); Monocytes % (auto) 8.8 %; Neutrophils # (auto) 11.13 K/uL (1.4-6.5); Neutrophils % (auto) 78.6 %; Platelet Count 179 K/uL (130-400); RDW Coefficient of Variation 12.6 % (11.5-14.5); RDW Standard Deviation 40.6 fL (36.4-46.3); Red Blood Count 3.75 M/uL (4.7-6.1); White Blood Count 14.16 K/uL (4.8-10.8)
[2019-05-18] MEDS: FAMOTIDINE 20 MG in SYRINGE 3 ML IV SCH (06:01)
[2019-05-18] MEDS ORDERED: POTASSIUM PHOS 3 MMOL/1 ML INFUSION IV STA (06:48)
[2019-05-18] MEDS ORDERED: CALCIUM GLUCONATE 10% 2,000 MG in SODIUM CHLORIDE 0.9% 50 ML IV STA (06:48)
[2019-05-18] MEDS ORDERED: POTASSIUM PHOSPHATE 24 MMOL in SODIUM CHLORIDE 0.9% 500 ML IV ONE (07:00)
[2019-05-18 07:54] LABS: Estimated Average Glucose 226 mg/dl; Hemoglobin A1C 9.5 % (4.5-5.6)
[2019-05-18] MEDS: INSULIN ASPART 100 UNITS/ML 3 ML PEN SC SCH ×4 (08:18→21:13)
[2019-05-18] MEDS: HEPARIN SOD 5,000 UNIT/0.5 ML VIAL SQ SCH ×2 (08:19→21:16)
[2019-05-18] MEDS ORDERED: INSULIN GLARGINE SOLOSTAR 100 UNITS/ML 3 ML PEN SC ONE ×2 (10:00→21:00)
[2019-05-18] MEDS ORDERED: POTASSIUM CHLORIDE 20 MEQ TABCR PO ONE (10:30)
--- NOTE | 2019-05-18 13:04 | Critical Care Progress Note ---
Date of Service May 18, 2019 Assessment & Plan (1) DKA (diabetic ketoacidoses): Reason Critically Ill: 23-year-old male with severe DKA and electrolyte derangements requiring aggressive IV fluid resuscitation and close hemodynamic monitoring. NEURO - CAM ICU: NEGATIVE Will continue to monitor for any acute changes. CARDIAC/VASCULAR - -Elevated troponins-likely secondary to Type II ischemia. will continue to trend troponins. -EKG with resolving peaked T-waves, narrowing of qrs complex; sinus tachycardia qtc 419. Continue with serial EKGs -Hyperkalemia currently resolved. -will continue to monitor RESPIRATORY - -resolved tachypnea, kussmaul breathing. -Serial ABGs, with last showing a resolving metabolic acidosis. -chest XR: unremarkable GI/NUTRITION - -will start on diabetic diet, nausea and vomitting essentially resolved. - Zofran currently ordered PRN -d/c famotidine RENAL/LYTES - High Anion gap metabolic acidosis: 2/2 Profound DKA, currently resolving. Gap closed. No longer requires fluids. Hyperkalemia resolved. Hyponatremia resolved. JIMENEZ: currently resolved, likely prerenal. - continue strict I&Os. ENDO - Profound DKA in the IDDM; secondary to new sensor malfunction. DKA Tx per unit protocol. Continue w/ Insulin gtt but will transition with 32U SQ Lantus. Of note, pt with a HgA1c of 9.5 currently; states he uses 43U of basal insulin at home with a carb ratio of 5. Pharmacy consult appreciated for help with transition back to pump Bicarb drip d/c HEME - Leukocytosis: Likely in the setting of stress reaction/demargination. Stable H&H. Will monitor closely w/ aggressive IVF resuscitation. ID - Elevated leukocytosis likely stress reaction in the setting of significant N/V. Without fever or prodrome of other infectious etiology. serum lactate normal. LINES/IV ACCESS - PIVs x1 LEFT Forearm 22g Endurance catheter. RIGHT Radial A-Line. Patient verbally consents to CVL if needed. DVT PROPHYLAXIS - SCDs Supervising Physician Co-Signing Physician Notes Dr. Ambriz was the resident-physician during care of patient. I separately evaluated patient for hoff portions of the history and the exam. I was present during the critical portion of medical decision making, and I discussed the case with the resident. I generally agree with the findings and plan except for any additions/exceptions noted. Patient was discussed on multidisciplinary rounds. Patient seen a gap is closed. He is able to tolerate a diet. We are transitioning him from IV insulin to subcu long-acting insulin. Pharmacy is helping with the transition. Once the patient is fully transition with a transfer him out of the ICU. Of note, patient had transient hyperkalemia related to his DKA which is since resolved. His subsequent EKG looks to be improved. Remove arterial line. Subjective Pt states he is doing much better today. N/V essentially resolved; hungry and desiring to eat. Denies headaches, blurry vision, SOB, chest pain, palpitations, N/V, diarrhea or constipation, abd pain, numbness or tingling anywhere. Review of Systems Review of Systems: All systems reviewed & are unremarkable except as noted in HPI & below Physical Exam Physical Exam: General: Alert, oriented. No acute distress, resting in bed. Skin: No rashes or bruises noted. Psych:Appropriate mood and affect. Neuro: No gross deficits. HEENT: NC/AT, PERRLA, EOMI. Chest: Nontender to palpation. CV: RRR, Normal s1, s2. No murmurs appreciated Resp: Breath sounds clear bilaterally, no increased effort of breathing. No crackles/rhonchi/rales. Abdomen: Soft, nontender, nondistended. No guarding. No organomegaly appreciated. Extremities: No edema in lower extremities bilaterally. Results & Data Vital Signs (Past 12 Hours) Vital Signs Temp Pulse Pulse Resp BP BP BP 05/18/19 08:00 36.9 C 109 H 20 103/54 L 05/18/19 07:00 100 H 20 98/64 L 05/18/19 06:00 37 C 101 H 18 107/62 107/50 L 05/18/19 05:00 109 H 14 83/41 L 106/58 L 05/18/19 04:00 108 H 20 81/47 L 99/57 L 05/18/19 03:00 104 H 19 104/54 L 87/44 L 05/18/19 02:00 98 H 17 91/49 L 93/53 L 05/18/19 01:00 103 H 18 94/53 L 87/49 L 05/18/19 00:00 122 H 23 84/53 L 98/46 L 05/17/19 23:00 117 H 16 103/54 L 110/55 L 05/17/19 22:00 109 H 20 99/63 L 100/42 L Pulse Ox 05/18/19 08:00 05/18/19 07:00 97 05/18/19 06:00 96 05/18/19 05:00 95 05/18/19 04:00 96 05/18/19 03:00 95 05/18/19 02:00 96 05/18/19 01:00 97 05/18/19 00:00 97 05/17/19 23:00 98 05/17/19 22:00 97 I personally reviewed the patient's pertinent labs and imaging. PG Care Time/CCT Total # of Minutes Spent Total Time Spent with Patient: Total time spent is greater than 50% in coordination of care (as documented) at patient's floor/unit and/or counseling patient: Resident Activity Tracking Resident Involvement: Resident Care Provided Care Provided: Adult Hospital Medicine (1) DKA (diabetic ketoacidoses) Diabetes mellitus complication detail: without coma Diabetes mellitus type: type 1 Qualified Code(s): E10.10 - Type 1 diabetes mellitus with ketoacidosis without coma
--- NOTE | 2019-05-18 13:23 | Pharmacy Report ---
Glycemic Control Consultation - Date of Service May 18, 2019 - Scope Scope: Glycemic Pharmacist consulted for glycemic control and to write orders per [facility] inpatient glycemic control protocol - Objective Weight: 74.4 kg Accuchecks BSG (last 24hrs): 05/17/19 05/17/19 05/17/19 15:03 17:02 17:26 Glucose POC Glucose 179 H 135 H 131 H 05/17/19 05/17/19 05/17/19 17:45 18:27 18:46 Glucose 177 H POC Glucose 219 H 174 H 05/17/19 05/17/19 05/17/19 20:20 21:06 21:54 Glucose POC Glucose 200 H 179 H 209 H 05/17/19 05/18/19 05/18/19 22:23 00:07 02:02 Glucose 215 H POC Glucose 221 H 179 H 05/18/19 05/18/19 05/18/19 04:04 04:26 08:07 Glucose 196 H POC Glucose 188 H 198 H 05/18/19 11:24 Glucose POC Glucose 186 H Laboratory Data (last 24hrs): 05/17/19 05/17/19 05/18/19 18:27 22:23 04:26 Potassium 3.7 4.2 3.6 Carbon Dioxide 14 L 16 L 21 Anion Gap 13.0 H 13.0 H 9.0 Creatinine 1.53 H 1.40 1.32 Est Cr Clr Drug Dosing 77.5 84.7 89.9 HbA1c: Hemoglobin A1c 9.5 % (4.5-5.6) H 05/16/19 23:56 - Recent Pertinent Medications Outpatient Anti-diabetic Regimen: Humalog pump * Basal: total of 42.9 units/24 hours * 1618-3788: 1.9 units/hr * 7037-5433: 1.3 units/hr * 8448-3728: 1.9 units/hr * 4841-1390: 1.7 units/hr * Bolus * Carb ratio of 1 unit insulin for every 5 g CHO consumed A1c = 9.5 % on 05/16/19 The patient is currently receiving: * Insulin drip @ 2.6 units/hr constant for over 16 hours (since 05/17 @1945) Risk Factors for Insulin Resistance: * Severe DKA on admission (increases insulin resistance) * Diet: T1DM (but no/minimal po intake at lunch) - Assessment & Plan Assessment & Plan: ASSESSMENT: * 23 yo M with poorly controlled TYPE 1 diabetes (managed with Humalog pump) from [place] in town for [place] admitted with severe DKA * Etiology of DKA multifactorial - suspect dietary indiscretion but also recent change in last week to continuous glucose monitoring (CGM) device, Dexcom. * Spoke with patient * He provided the basal pump rates and carb ratio (above). I verbally confirmed both as these doses are rather higher than anticipated for a non- obese, young patient with type 1 diabetes * He noted he switched to Dexcom recently. He confirmed that Dexcom does *not* electronically communicate with his pump and that the patient has to input the BSG obtained on Dexcom into the pump * Patient reports he does not have pump set here in [place] - will not be able to transition to insulin pump this admission. * Discussed comfort with manipulating/suspending/resuming basal rates on his pump as patient will need to do this after discharge. Patient reports comfort with his ability to do this. I counseled that it will be important to resume basal rate on pump at the correct time as not doing so could lead to severe hypo or hyperglycemia. Patient acknowledged understanding and again expressed comfort with manipulating/suspending/resuming basal rates / pump settings if needed after discharge * Patient did not believe pump malfunction contributed to DKA episode, but ra raul attributed it to the initiation of his CGM, Dexcom * Patient believed he still had a BSG meter available, and it may even be in his car here with him in [place]. Would suggest confirming av ailability of BSG meter prior to discharge. * I am concerned for outpatient non-adherence given large reported insulin doses but also an A1c suggesting poor control. However, patient has been NPO or has had intractable N/V therefore po intake this admission negligible, and despite this, has been requiring a stable insulin drip rate of 2.6 units/hr, which equates to 64 units of insulin per day. Of note, dextrose has been infusing and D5 containing fluids at 200 mL/hr will provide 240 g CHO/day therefore this 64 units/day is not all basal. * Dextrose infusion stopped this AM - OK to transition off insulin drip per ICU rounds discussion * Despite DKA increasing insulin resistance, will not increase outpatient basal dose as I am concerned for non-adherence. Dose selected is about 80% of outpatient basal dose and also is 50% of calculated insulin/day patient is receiving via insulin drip. OK to give additional Lantus tonight, but only if BSG's >180 mg/dL * Will also not start CHO ratio at outpatient parameters but instead select looser initial CHO ratio and add two overnight checks PLAN FOR INPATIENT GLYCEMIC CONTROL: * Discontinue IV insulin infusion 6 hours after Lantus administration (@1630). Depending on trend in BSG's post-discontinuation, patient may require insulin drip to be resumed later today. * Goal Range 140 - 180 mg/dl * Basal insulin: Lantus 32 units SQ x1 (administered @1039). Additional Lantus tonight as follows: * 0 units for BSG less than 180 mg/dL * 5 units for BSG 180-250 mg/dL * 10 units for BSG 250-300 mg/dL * Call pharmacist for BSG greater than 300 mg/dL * Bolus insulin * NovoLog per scale ACHS or Q6hrs while NPO * Goal Range: Low 120 mg/dL - High 160 mg/dL * Correction Factor: 30 mg/dL/unit * Nutritional / Prandial insulin per carb ratio of 1 unit per 8 grams CHO consumed * Please note that the plan above was derived based on current level of insulin resistance and hospital stress. These recommendations are appropriate for inpatient admission only. Plan of care upon discharge will need to be reassessed to avoid potential outpatient hypo/hyperglycemia. Thank you.
--- NOTE | 2019-05-18 15:49 | Hospitalist Progress Note ---
Date of Service May 18, 2019 Assessment & Plan (1) DKA (diabetic ketoacidoses): Known insulin-dependent diabetes on insulin pump Admitted with severe DKA with blood glucose of more than 600 on admit Has been on insulin drip-appreciate pharmacy input and recommendation Appreciate advisor consultant input and recommendation Clinically better this morning We will continue current management Much better today Insulin given by subcutaneous route Leukocytosis Secondary to a stress due to DKA Doubt any infection Has been improving Increasing troponin Likely due to stress and demand ischemia Doubt any ACS Troponins have been improving (2) High anion gap metabolic acidosis: Presented with high anion gap metabolic acidosis Initial pH 6.951 presentation with bicarb of 4 Has been receiving intravenous fluid including intravenous bicarb Acidosis has been improving (3) Hyperkalemia: Presented with severe electrolyte abnormality Potassium was 7.7 with EKG changes on admission Has been normalized as of this morning Hypophosphatemia Has been getting replacement Hospital level remains low Has been getting more intravenous replacement We will monitor (4) Acute renal failure: Secondary to severe dehydration Has been getting intravenous fluid Kidney function seems to be improving with creatinine of 1.65 on 05/17 Renal function has been normalized DVT prophylaxis Subcu heparin Likely transfer to medical floor this evening Likely go home tomorrow Subjective 05/17 The patient was seen and examined in ICU Is a 23-year-old male with insulin-dependent diabetes was admitted with DKA and severe electrolyte imbalance Remains drowsy as of this morning without any acute distress Denies any significant symptoms 05/18 The patient was seen and examined in ICU He has been doing a lot better Denies any kind of symptoms His electrolytes remains low Review of Systems Review of Systems: All systems reviewed and are unremarkable except as noted below Constitutional: + fatigue, + weakness and + anorexia Neurologic: + generalized weakness Physical Exam Physical Exam: No apparent distress at rest Constitutional: well developed, well nourished and + ill appearing; no acute distress Eyes: PERRL, conjunctivae normal, anicteric sclerae ENMT: external ear and nose normal, oropharynx normal Neck: trachea midline, no thyromegaly Respiratory: normal respiratory effort; no respiratory distress A uscultation: lungs clear to auscultation bilaterally Cardiovascular: Rate/Rhythm: regular rate and regular rhythm Heart Sounds: no murmur Gastrointestinal (Abdomen): Inspection/Auscultation: abdomen normal to inspection and normal bowel sounds Percussion/Palpation: abdomen soft Musculoskeletal: No acute arthritis in any joints Neurologic: moves all extremities; no focal motor deficits Lymphatic: no cervical or axillary lymphadenopathy Results & Data Vital Signs (Past 12 Hours) Vital Signs Temp Pulse Pulse Resp BP BP BP 05/18/19 15:04 117 H 05/18/19 14:00 106 H 21 95/74 L 05/18/19 13:00 113 H 30 H 100/54 L 05/18/19 12:00 36.9 C 117 H 16 116/81 05/18/19 11:00 113 H 20 111/68 05/18/19 10:00 107 H 17 112/62 05/18/19 09:00 99 H 11 L 98/59 L 05/18/19 08:00 36.9 C 109 H 20 103/54 L 05/18/19 07:00 100 H 20 98/64 L 05/18/19 06:44 110 H 05/18/19 06:00 37 C 101 H 18 107/62 107/50 L 05/18/19 05:00 109 H 14 83/41 L 106/58 L 05/18/19 04:00 108 H 20 81/47 L 99/57 L Pulse Ox 05/18/19 15:04 05/18/19 14:00 96 05/18/19 13:00 96 05/18/19 12:00 97 05/18/19 11:00 98 05/18/19 10:00 95 05/18/19 09:00 97 05/18/19 08:00 05/18/19 07:00 97 05/18/19 06:44 05/18/19 06:00 96 05/18/19 05:00 95 05/18/19 04:00 96 Laboratory Results Short CBC 05/18/19 Range/Units 04:26 WBC 14.16 H (4.8-10.8) K/uL Hgb 12.1 L (14.0-18.0) g/dL Hct 33.5 L (42-52) % Plt Count 179 (130-400) K/uL BMP 05/17/19 05/17/19 05/18/19 18:27 22:23 04:26 Sodium 137 139 141 Potassium 3.7 4.2 3.6 Chloride 110 H 110 H 111 H Carbon Dioxide 14 L 16 L 21 BUN 16 13 11 Creatinine 1.53 H 1.40 1.32 Glucose 177 H 215 H 196 H Calcium 7.5 L 8.1 L 7.4 L Medications Administered Current Inpatient Medications Dextrose (Dextrose 50%) 25 - 50 ml IV UD PRN; Protocol PRN Reason: Hypoglycemia Protocol Stop: 06/16/19 03:29 Glucagon (Glucagen) 1 mg SQ UD PRN; Protocol PRN Reason: Hypoglycemia Protocol Stop: 06/16/19 03:29 Glucose (Glucose 40%) 15 - 30 gm PO UD PRN; Protocol PRN Reason: Hypoglycemia Protocol Stop: 06/16/19 03:29 Glucose (Dex4 Glucose) 4 - 8 tabs PO UD PRN; Protocol PRN Reason: Hypoglycemia Protocol Stop: 06/16/19 03:29 Heparin Sodium (Porcine) (Heparin Sodium (Porcine)) 5,000 units SQ Q12 JUSTINO Stop: 06/16/19 20:59 Last Admin: 05/18/19 08:19 Dose: 5,000 units Documented by: Insulin Human Regular 250 (units/ Sodium Chloride) 250 mls @ 2.6 mls/hr IV .Q24H [facility]; Protocol Stop: 05/18/19 16:30 Last Titration: 05/18/19 14:08 Dose: 2.6 units/hr, 2.6 mls/hr Documented by: Lorazepam (Ativan) 0.25 mg in 0.5 mls @ 0.5 mls/min IV Q6 PRN PRN Reason: Nausea And Vomiting Stop: 06/16/19 08:00 Insulin Aspart (Novolog Flexpen) 0 units SC ACHS [facility]; Protocol Stop: 06/17/19 16:29 Insulin Aspart (Novolog Flexpen) 0 units SC TODAY@0000,0400 [facility]; Protocol Stop: 05/19/19 04:01 Miscellaneous (Carbohydrates For Hypoglycemia) 15 - 30 gm PO UD PRN PRN Reason: Hypoglycemia Treatment Stop: 06/16/19 03:29 Miscellaneous (Icu Electrolyte Replacement Protocol) 1 ea N/A UD PRN PRN Reason: for e-lyte repletion Stop: 05/24/19 07:58 Miscellaneous (Stop Order) 1 ea N/A TODAY@1630 ONE Stop: 05/18/19 16:31 Miscellaneous Information (Consult Glycemic Management Pharmacy) 1 ea N/A UD PRN PRN Reason: Consult Stop: 06/16/19 03:18 Ondansetron HCl (Zofran) 4 mg IV Q6H PRN PRN Reason: Nausea Stop: 06/16/19 04:06 Last Admin: 05/17/19 05:21 Dose: 4 mg Documented by: (1) DKA (diabetic ketoacidoses) Diabetes mellitus complication detail: without coma Diabetes mellitus type: type 1 Qualified Code(s): E10.10 - Type 1 diabetes mellitus with ketoacidosis without coma (2) Acute renal failure Acute renal failure type: unspecified Qualified Code(s): N17.9 - Acute kidney failure, unspecified
[2019-05-19] MEDS: INSULIN ASPART 100 UNITS/ML 3 ML PEN SC SCH ×4 (00:03→11:41)
[2019-05-19 04:58] LABS: Basophils # (auto) 0.02 K/uL (0-0.2); Basophils % (auto) 0.2 %; Eosinophils # (auto) 0.04 K/uL (0-0.5); Eosinophils % (auto) 0.5 %; Hematocrit (blood only) 37.6 % (42-52); Hemoglobin 13.5 g/dL (14.0-18.0); Immature Granulocytes # (auto) 0.02 K/uL (0.00-0.02); Immature Granulocytes % (auto) 0.2 %; Lymphocytes % (auto) 27.3 %; Mean Corpuscular Hemoglobin 32.6 pg (25-34); Mean Corpuscular Hgb Conc 35.9 g/dL (32-36); Mean Corpuscular Volume 90.8 fL (80-100); Mean Platelet Volume 9.5 fL (7.4-10.4); Monocytes # (auto) 0.96 K/uL (0.11-0.59); Monocytes % (auto) 11.9 %; Neutrophils # (auto) 4.82 K/uL (1.4-6.5); Neutrophils % (auto) 59.9 %; Platelet Count 145 K/uL (130-400); RDW Coefficient of Variation 12.6 % (11.5-14.5); RDW Standard Deviation 42.2 fL (36.4-46.3); Red Blood Count 4.14 M/uL (4.7-6.1); White Blood Count 8.06 K/uL (4.8-10.8)
[2019-05-19 06:20] LABS: BUN Creatinine Ratio 9.8 (10-20); Calcium 8.1 mg/dl (8.5-10.1); Creatinine Clr Calc Pharmacy 105.9 ml/min; Est GFR (African American) 106.7; Est GFR (Non-African American) 92.1; Magnesium 1.9 mg/dl (1.8-2.4); Phosphorus 2.1 mg/dl (2.5-4.9); Potassium 3.5 mmol/L (3.5-5.1)
[2019-05-19] MEDS ORDERED: INSULIN GLARGINE SOLOSTAR 100 UNITS/ML 3 ML PEN SC ONE (07:30)
[2019-05-19] MEDS ORDERED: POTASSIUM PHOS 3 MMOL/1 ML INFUSION IV STA (08:31)
[2019-05-19] MEDS ORDERED: ENOXAPARIN INJ 40 MG/0.4 ML SYR SQ SCH (09:00)
[2019-05-19] MEDS ORDERED: POTASSIUM PHOSPHATE 24 MMOL in SODIUM CHLORIDE 0.9% 500 ML IV ONE (09:00)
--- NOTE | 2019-05-19 09:43 | Pharmacy Report ---
Pharmacy Glycemic Short Note 2 - Date of Service May 19, 2019 - Glycemic Short BSG Results (Last 24 hours): 05/18/19 05/18/19 05/18/19 11:24 14:07 16:22 Glucose POC Glucose 186 H 184 H 110 H 05/18/19 05/18/19 05/19/19 21:08 23:59 03:49 Glucose POC Glucose 202 H 253 H 207 H 05/19/19 05/19/19 04:18 07:28 Glucose 222 H POC Glucose 225 H OUTPATIENT ANTIDIABETIC REGIMEN: * Humalog pump * Basal: total of 42.9 units/24 hours * 2846-5434: 1.9 units/hr * 3520-6023: 1.3 units/hr * 6152-5102: 1.9 units/hr * 0594-9044: 1.7 units/hr * Bolus * Sensitivity factor: 20mg/dL/unit for BSGs above 130 * Carb ratio of 1 unit insulin for every 5 g CHO consumed * A1c = 9.5 % on 05/16/19 The patient is currently receiving: * Lantus 40 units SQ Q AM * Novolog ACHS * goal range: 120-160 * CF: 30mg/dL/unit * CR: 1 unit per 7 gm CHO ASSESSMENT: * DKA resolved at this time; AG 10, Bicarb 23, BSGs in low 200s * Patient's insulin pump and CGM malfunctioning and will be discharged on basal/bolus regimen with glucometer PLAN FOR INPATIENT GLYCEMIC CONTROL: * Basal insulin * Lantus 40 units SQ QAM * Bolus insulin * NovoLog per scale ACHS or Q6hrs while NPO * Goal Range: Low 120 mg/dL - High 160 mg/dL * Correction Factor: 30 mg/dL/unit * Nutritional / Prandial insulin per carb ratio of 1 unit per 7 grams CHO consumed PLAN FOR DISCHARGE: * Patient's insulin pump not able to be used at this time due to lack of supplies. Per discussion with patient, supplies may not be immediately a vailable on return to [place]. Should pump supplies not be immediately available, would recommend the following: * Check BSGs before each meal and at bedtime. Please send glucometer and testing strips home with patient. * Lantus 40 units SQ daily in the AM (please send Lantus pen home with patient along with pen needles) * Novolog SQ ACHS: 1 unit per 5 grams of carbs consumed with meals; 1 unit of correction for each 20mg/dL above 140mg/dL (please send pen home with patient) * When ready to resume insulin pump: ideally resume the pump in the AM when your next dose of Lantus is due. If you resume the pump before your Lantus dose is due, you will need to suspend your basal settings until your next dose of Lantus would have been given. The pump may be used to bolus for meals and correction while the basal setting is suspended.
--- NOTE | 2019-05-19 12:13 | Hospitalist Progress Note ---
Date of Service May 19, 2019 Assessment & Plan (1) DKA (diabetic ketoacidoses): Known insulin-dependent diabetes on insulin pump Admitted with severe DKA with blood glucose of more than 600 on admit Has been on insulin drip-appreciate, then switched to subq insulin Clinically much better this morning Pharmacy consulted, recommended lantus and novolog on discharge, plan to follow up w/ endocrinology and re-start on pump as outpt Leukocytosis - resolved Secondary to a stress due to DKA Doubt any infection Has been improving Increasing troponin Likely due to stress and demand ischemia Doubt any ACS Troponins have been improving (2) High anion gap metabolic acidosis: Presented with high anion gap metabolic acidosis - resolved Initial pH 6.951 presentation with bicarb of 4 Has been receiving intravenous fluid including intravenous bicarb Acidosis has been improving (3) Hyperkalemia: Presented with severe electrolyte abnormality Potassium was 7.7 with EKG changes on admission Has been normalized as of this morning Hypophosphatemia - improved Has been getting replacement Hospital level remains low Has been getting more intravenous replacement (4) Acute renal failure: Secondary to severe dehydration Has been getting intravenous fluid Kidney function seems to be improving with creatinine of 1.65 on 05/17 Renal function has been normalized DVT prophylaxis Subcu heparin Likely transfer to medical floor this evening Plan to discharge today Subjective No acute events overnight. Pt feels well, denies any fever, chills, nausea, vomiting, abd.pain. Mother at the bedside. Review of Systems Review of Systems: All systems reviewed and are unremarkable except as noted below Physical Exam Constitutional: well developed and well nourished; no acute distress Eyes: PERRL, conjunctivae normal, anicteric sclerae ENMT: external ear and nose normal, oropharynx normal Neck: trachea midline, no thyromegaly Respiratory: normal respiratory effort; no respiratory distress Auscultation: lungs clear to auscultation bilaterally Cardiovascular: Rate/Rhythm: regular rate and regular rhythm Heart Sounds: no murmur Gastrointestinal (Abdomen): Inspection/Auscultation: abdomen normal to inspection and normal bowel sounds Percussion/Palpation: abdomen soft Neurologic: moves all extremities; no focal motor deficits Lymphatic: no cervical or axillary lymphadenopathy Results & Data Vital Signs (Past 12 Hours) Vital Signs Temp Pulse Pulse Resp BP BP Pulse Ox 05/19/19 11:07 37.0 C 93 H 15 113/74 95 05/19/19 08:00 101 H 05/19/19 07:55 37.2 C 94 H 16 110/73 94 05/19/19 04:00 98 H 20 103/81 05/19/19 02:00 100 H 20 Laboratory Results Short CBC 05/19/19 Range/Units 04:18 WBC 8.06 (4.8-10.8) K/uL Hgb 13.5 L (14.0-18.0) g/dL Hct 37.6 L (42-52) % Plt Count 145 (130-400) K/uL BMP 05/19/19 04:18 Sodium 139 Potassium 3.5 Chloride 106 Carbon Dioxide 23 BUN 11 Creatinine 1.12 Glucose 222 H Calcium 8.1 L Medications Administered Current Inpatient Medications Dextrose (Dextrose 50%) 25 - 50 ml IV UD PRN; Protocol PRN Reason: Hypoglycemia Protocol Stop: 06/16/19 03:29 Enoxaparin S[facility] ([facility]) [facility]: 06/18/19 08:59 Last Admin: 05/19/19 07:59 Dose: Not Given Documented by: Glucagon (Glucagen) 1 mg SQ UD PRN; Protocol PRN Reason: Hypoglycemia Protocol Stop: 06/16/19 03:29 Glucose (Glucose 40%) 15 - 30 gm PO UD PRN; Protocol PRN Reason: Hypoglycemia Protocol Stop: 06/16/19 03:29 Glucose (Dex4 Glucose) 4 - 8 tabs PO UD PRN; Protocol PRN Reason: Hypoglycemia Protocol Stop: 06/16/19 03:29 Potassium Phosphate 24 mmol/ (Sodium Chloride) 508 mls @ 127 mls/hr IV TODAY@0845 ONE Stop: 05/19/19 12:59 Last Admin: 05/19/19 08:54 Dose: 127 mls/hr Documented by: Insulin Aspart (Novolog Flexpen) 0 units SC ACHS JUSTINO; Protocol Stop: 06/17/19 16:29 Last Admin: 05/19/19 11:41 Dose: 9 units Documented by: Miscellaneous (Carbohydrates For Hypoglycemia) 15 - 30 gm PO UD PRN PRN Reason: Hypoglycemia Treatment Stop: 06/16/19 03:29 Miscellaneous (Icu Electrolyte Replacement Protocol) 1 ea N/A UD PRN PRN Reason: for e-lyte repletion Stop: 05/24/19 07:58 Miscellaneous Information (Consult Glycemic Management Pharmacy) 1 ea N/A UD PRN PRN Reason: Consult Stop: 06/16/19 03:18 Ondansetron HCl (Zofran) 4 mg IV Q6H PRN PRN Reason: Nausea Stop: 06/16/19 04:06 Last Admin: 05/17/19 05:21 Dose: 4 mg Documented by: (1) DKA (diabetic ketoacidoses) Diabetes mellitus complication detail: without coma Diabetes mellitus type: type 1 Qualified Code(s): E10.10 - Type 1 diabetes mellitus with ketoacidosis without coma (2) Acute renal failure Acute renal failure type: unspecified Qualified Code(s): N17.9 - Acute kidney failure, unspecified
--- NOTE | 2019-05-20 09:03 | Discharge Summary ---
Date of Service May 20, 2019 Admission HPI Per Admitting Provider DICTATED BY: Andrew Jurado MD DATE OF ADMISSION: 05/17/2019 CHIEF COMPLAINT: Diabetic ketoacidosis. HISTORY OF PRESENT ILLNESS: This is a 23-year-old male with past medical history significant for type 1 diabetes since last 12 years, on insulin pump since last 8 years. About a week ago, his insulin pump sensor was changed. He is from [facility] for [facility]. Yesterday, he was having lot of nausea and vomiting. He thought it was food poisoning and the he got dehydrated, was not feeling well, feeling sick and he checked his blood sugars and were running high on monitor, so he came here and found to be in DKA. His blood sugars on the blood work is 1071. Potassium of 7.7, bicarbonate was less than 5, creatinine was 2.7. White count was 35,000. A pH was 6.95 and on the monitor, he was having peaked T waves. He was aggressively treated for his hyperkalemia with sodium bicarbonate, calcium chloride, albuterol and insulin. The patient denies any abdominal pain. Denies any fever, chills, no cough, no headaches. He has some blurred visions, no earache, no runny nose, no sore throat, no chest pain, no shortness of breath. He is having frequent urination. Denies any burning micturition, no hematuria, no black stools, no melena or hematochezia. No rash. He never had DKA in the past. Admission Exam Per Admitting Provider GENERAL: The patient is alert and awake, not in acute distress currently. VITAL SIGNS: Temperature 36.6, pulse 120s, respiratory rate 20s, blood pressure 125/81, oxygen 99% room air. HEENT: No pallor, no icterus. Oral mucosa dry. NECK: No JVD, no neck masses, no carotid bruits. CARDIOVASCULAR: S1, S2 heard. Tachycardia. No murmurs. RESPIRATORY SYSTEM: Normal AP diameter, mild tachypnea. No wheezing, no crackles. ABDOMEN: Soft, bowel sounds present, nontender. No distention. CENTRAL NERVOUS SYSTEM: Alert, awake, oriented. Obeys simple commands. Moves extremities. EXTREMITIES: No edema, no erythema. Principal Diagnosis DKA, JIMENEZ, electrolyte imbalance Discharge Exam Constitutional well developed and well nourished; no acute distress Eyes PERRL, conjunctivae normal, anicteric sclerae ENMT external ear and nose normal, oropharynx normal Neck trachea midline, no thyromegaly Respiratory normal respiratory effort; no respiratory distress Auscultation: lungs clear to auscultation bilaterally Cardiovascular Rate/Rhythm: regular rate and regular rhythm Heart Sounds: no murmur Gastrointestinal (Abdomen) Inspection/Auscultation: abdomen normal to inspection and normal bowel sounds Percussion/Palpation: abdomen soft Neurologic moves all extremities; no focal motor deficits Lymphatic no cervical or axillary lymphadenopathy Discharge Data Allergies Allergy/AdvReac Type Severity Reaction Status Date / Time No Known Allergies Allergy Unverified 05/17/19 00:31 Consultations 05/17/19 02:00 ED Decision to Admit Stat 05/17/19 02:33 Consult Case Management - Discharge Planning Routine Consult Motorboat Mechanic Inboard/Outboard Routine Hospital Course (1) DKA (diabetic ketoacidoses): Known insulin-dependent diabetes on insulin pump Admitted with severe DKA with blood glucose of more than 600 on admit Has been on insulin drip-appreciate, then switched to subq insulin Clinically much better this morning Pharmacy consulted, recommended lantus and novolog on discharge, plan to follow up w/ endocrinology and re-start on pump as outpt Leukocytosis - resolved Secondary to a stress due to DKA Doubt any infection Has been improving Increasing troponin Likely due to stress and demand ischemia Doubt any ACS Troponins have been improving (2) High anion gap metabolic acidosis: Presented with high anion gap metabolic acidosis - resolved Initial pH 6.951 presentation with bicarb of 4 Has been receiving intravenous fluid including intravenous bicarb Acidosis has been improving (3) Hyperkalemia: Presented with severe electrolyte abnormality Potassium was 7.7 with EKG changes on admission Has been normalized as of this morning Hypophosphatemia - improved Has been getting replacement Hospital level remains low Has been getting more intravenous replacement (4) Acute renal failure: Secondary to severe dehydration Has been getting intravenous fluid Kidney function seems to be improving with creatinine of 1.65 on 05/17 Renal function has been normalized DVT prophylaxis Subcu heparin Likely transfer to medical floor this evening Plan to discharge today Total Time Total Time Spent Total Time Spent (In Minutes): 35 minutes Total Time Includes: Examination of the Patient, Discharge Planning, Medication Reconciliation and Communication With Other Providers Discharge Plan Discharge Items Patient Disposition: Home - Self-Care Reason For Visit: n/v Discharge Diagnosis: DKA, JIMENEZ, electrolyte imbalance Condition on Discharge: Good Activity: Resume your previous activity Non-emergency contact: Primary Care Provider Call non-emergency contact if: you have any medication questions and your symptoms worsen Follow-up/Referrals: Jed Mcnamara MD [Primary Care Provider] - (Please make an appointment w/ PCP within 7 days) Diet: Carb Count or DM1 Addtl Attending Provider Instructions: Please make sure to follow up with your log cutter to re-start insulin pump Pending Studies at Discharge: No Stand-Alone Forms: My [facility] Medications and DC Order Prescriptions: New Lantus Solostar U-100 Insulin 100 unit/mL (3 mL) insulin pen 40 units SQ QAM Qty: 3 RF: 0 Novolog Flexpen U-100 Insulin 100 unit/mL (3 mL) insulin pen 1 units SQ UD Qty: 15 RF: 0 Continued Humalog U-100 Insulin 100 unit/mL Cartridge 1 sliding scale dose continuous subcutaneous infusion [id number] RF: 0 Discharge Orders: Discharge Order (Routine); Ordered 05/19/19 Ordered By: Jeanette Anguiano/Other Patient Handouts: Diabetes Type 1 Coping, Diabetes Type 1 Manage Ch, Diabetes Type 1 Use Insulin Ch, Diabetes Type 1 Ch, Diabetes Insulin Pump Ch, Diabetes Type 1 Meals Snacks Ch, Diabetes Type 1 Food Facts Ch Admission Data Admit Date/Time: 05/17/19 01:58 Attending Provider: Jeanette Pool Admit Provider: Andrew Jurado Primary Care Provider: Jed Mcnamara Other Providers: Andrew Jurado ; Giuliano Del Valle Other Interventions: Discharge Summary Assessment (RN) Last Done: 05/19/19 12:38 DC Date/Time DO NOT enter until pt leaves facility: 05/19/19 14:59
== END 2019-05-19 14:59 | disposition home or self-care (01) | DRG 638 ==
LOC: ED 23:21 → 1E 05-17 01:58 → 2E 05-19 06:08